=== PATIENT | male | born 1960 | race Hispanic/Latino ===

== ENCOUNTER 2017-05-30 13:24 | Emergency (ER) | payer BC, SELFPAY ==
[2017-05-30 14:08] LABS: Mean Corpuscular HGB CONC 34.8 g/dL (32.0-36.0); Mean Corpuscular Hemoglobin 33.1 pg (27.0-31.0); Mean Corpuscular Volume 94.9 fl (80.0-94.0); RBC Distribution Width 12.3 % (11.5-14.5); Red Blood Cell (RBC) Count 3.94 mill/uL (4.70-6.10); White Blood Cell (WBC) Count 4.5 thou/uL (4.8-10.8)
[2017-05-30 14:20] LABS: ALT (SGPT) 29 U/L (8-55); AST (SGOT) 55 U/L (5-34); Alkaline Phosphatase 122 U/L (40-150); Anion Gap 10 mmol/L (10-20); BUN (Urea Nitrogen) 11 mg/dL (8.4-25.7); CK (CPK) 139 U/L (30-200); Calc. Creatinine Clearance 0 mL/min (70-130); Calcium 8.2 mg/dL (7.8-10.44); Carbon Dioxide 25 mmol/L (22-29); Chloride 111 mmol/L (98-107); Estimated GFR-MDRD Greater than 90; Globulin 2.8 g/dL (2.4-3.5); Glucose 226 mg/dL (70-105); Protein, Total 4.8 g/dL (6.0-8.3); Sodium 142 mmol/L (136-145)
[2017-05-30 14:25] LABS: CKMB 1.4 ng/mL (0-6.6); Troponin I 0.012 ng/mL (< 0.028)
[2017-05-30 14:38] LABS: #Eosinphils 0.3 thou/uL (0.0-0.7); #Lymphocytes 1.3 thou/uL (1.20-3.40); #Monocytes 0.3 thou/uL (0.11-0.59); #Neutrophils 2.7 thou/uL (1.40-6.50); %Basophils 0.4 % (0.0-1.0); %Eosinophils 5.5 % (0.0-10.0); %Lymphocytes 27.7 % (21.0-51.0); %Neutrophils 59.3 % (42.0-75.0); Mean Platelet Volume 7.2 fL (7.4-10.4); PLT Morphology Comment Appears Decreased; Platelet Count 108 thou/uL (130-400)
[2017-05-30] MEDS ORDERED: Furosemide 40 MG/4 ML VIAL ONE (14:58)
--- NOTE | 2017-05-30 15:10 | RAD ---
PA AND LATERAL CHEST: Indication: Emergency examation. History of chest wall swelling. FINDINGS: There is a small left pleural effusion. Heart size and pulmonary vasculature is within normal limits. No acute osseous abnormality is noted. Exam is compared to a prior dated 02-25-10. IMPRESSION: Nonspecific small left pleural effusion. POS: [facility]
[2017-05-30 15:23] LABS: Bilirubin Small (Negative); Blood, Urine Large (Negative); Clarity CLEAR (Clear); Glucose, Urine (Dipstick) 250 mg/dL (Negative); Leukocyte Negative (Negative); Nitrite Negative (Negative); Protein, Urine (Dipstick) 300 mg/dL (Neg-Trace); Specific Gravity, Urine 1.025 (1.002-1.036)
[2017-05-30 15:26] LABS: Bacteria/HPF None Seen HPF (None Seen); Pathc Cast-AUWi Flag 2.03 (0-2.49); RBC/HPF 21-50 HPF (0-3); Squamous Epithelial 0-3 HPF (0-3)
[2017-05-30 15:30] LABS: Hyaline Casts/LPF 0-3 HYALINE CAST LPF (0-3 Hyaline)
--- NOTE | 2017-06-05 19:02 | EKG ---
Test Reason : SWELLING Blood Pressure : / mmHG Vent. Rate : 085 BPM Atrial Rate : 085 BPM P-R Int : 152 ms QRS Dur : 096 ms QT Int : 370 ms P-R-T Axes : 055 -07 025 degrees QTc Int : 440 ms Normal sinus rhythm Normal ECG Confirmed by SIDRA RHODES, BORIS ([id number]), content editor BERNIE PEGUERO ([id number]) on 06/05/2017 7:02:16 PM Referred By: DR. ARSHAD Confirmed By:BORIS VALENTE MD
== END 2017-05-30 16:05 | disposition home or self-care (01) ==
LOC: ERS 13:24
DX: E11.22 Type 2 diabetes mellitus with diabetic chronic kidney disease (principal); N18.9 Chronic kidney disease, unspecified; Z79.84 Long term (current) use of oral hypoglycemic drugs; Z79.899 Other long term (current) drug therapy
CPT/HCPCS: 36415; 71046; 80053; 81003; 81015; 82553; 83880; 84484; 85025; 93005; 96374; J1940

== ENCOUNTER 2017-11-02 14:43 | Inpatient (IN) | payer SELFPAY ==
[2017-11-02 15:30] LABS: #Eosinphils 0.6 thou/uL (0.0-0.7); #Lymphocytes 1.5 thou/uL (1.20-3.40); #Monocytes 0.4 thou/uL (0.11-0.59); #Neutrophils 3.9 thou/uL (1.40-6.50); %Basophils 0.6 % (0.0-1.0); %Eosinophils 9.6 % (0.0-10.0); %Lymphocytes 23.5 % (21.0-51.0); %Monocytes 6.4 % (0.0-10.0); Hemoglobin 12.7 g/dL (14.0-18.0); Mean Corpuscular HGB CONC 34.7 g/dL (32.0-36.0); Mean Corpuscular Hemoglobin 32.7 pg (27.0-31.0); Mean Corpuscular Volume 94.2 fL (78.0-98.0); Mean Platelet Volume 7.3 fL (7.4-10.4); Platelet Count 107 thou/uL (130-400); RBC Distribution Width 12.7 % (11.5-14.5); Red Blood Cell (RBC) Count 3.89 mill/uL (4.70-6.10); White Blood Cell (WBC) Count 6.5 thou/uL (4.8-10.8)
[2017-11-02 15:48] LABS: ALT (SGPT) 49 U/L (8-55); AST (SGOT) 84 U/L (5-34); Alkaline Phosphatase 139 U/L (40-150); Anion Gap 12 mmol/L (10-20); BUN (Urea Nitrogen) 19 mg/dL (8.4-25.7); Bilirubin, Total 1.5 mg/dL (0.2-1.2); Calc. Creatinine Clearance 0 mL/min (70-130); Calcium 7.7 mg/dL (7.8-10.44); Carbon Dioxide 19 mmol/L (22-29); Chloride 112 mmol/L (98-107); Estimated GFR-MDRD Greater than 90; Glucose 204 mg/dL (70-105); Potassium 3.7 mmol/L (3.5-5.1); Sodium 139 mmol/L (136-145)
[2017-11-02 16:25] LABS: CKMB 3.5 ng/mL (0-6.6); Troponin I 0.019 ng/mL (< 0.028)
[2017-11-02 16:44] LABS: Bilirubin Small (Negative); Blood, Urine Large (Negative); Clarity CLEAR (Clear); Glucose, Urine (Dipstick) 100 mg/dL (Negative); Leukocyte Negative (Negative); Nitrite Negative (Negative); Protein, Urine (Dipstick) > or equal to 300 mg/dL (Neg-Trace); Specific Gravity, Urine 1.021 (1.002-1.036)
[2017-11-02 16:51] LABS: Bacteria/HPF None Seen HPF (None Seen); Hyaline Casts/LPF 7-10 HYALINE CAST LPF (0-3 Hyaline); Pathc Cast-AUWi Flag 1.16 (0-2.49); RBC/HPF 21-50 HPF (0-3); Squamous Epithelial 0-3 HPF (0-3); WBC/HPF 0-3 HPF (0-3)
[2017-11-02] MEDS ORDERED: traMADol HCl 50 MG TAB ONE (17:36)
[2017-11-02 17:40] LABS: INR-International Normal Ratio 1.2; PTT 29.2 SEC (22.9-36.1); Prothrombin Time 15.3 SEC (12.0-14.7)
--- NOTE | 2017-11-02 17:55 | CT ---
CT OF THE ABDOMEN AND PELVIS WITHOUT CONTRAST: 11/02/17 INDICATIONS: 57-year-old male who has diffuse lower abdominal pain with history of hepatitis C. COMPARISON: CT pelvis dated 09/02/11. FINDINGS: There is cirrhotic morphology of the liver. There is peripherally calcified hypodense mass involving segment V of the right hepatic lobe measuring 6.2 cm. There is layered gallstones within a nondistended gallbladder. Spleen is enlarged measuring 15.2 cm T here is prominent perisplenic and gastroesophageal varicosities. There is a 2.1 cm cyst within the po sterior mid aspect of the right kidney. There is tiny 1 to 2 mm nonobstructive calculus involving the inferior pole of both the right and left kidney. No hydronephrosis is evident. There is recanalizati on of umbilical vein. There is mild ascites. There is moderate anasarca. There is small bilateral ple ural effusions and bibasilar atelectasis. There are moderate calcifications noted involving the abdom inal and pelvic vasculature. Unopacified large and small bowel appear of normal caliber. The appendix is normal in the right lower quadrant. There are scattered degenerative and osteoarthritic change. IMPRESSION: 1. Findings of cirrhosis with portal hypertension. There is mild ascites and moderate anasarca. There is small bilateral pleural effusions. 2. Hypodense mass involving segment V of the right hepatic lobe with peripheral calcification. T his is incompletely characterized. Followup nonemergent MRI of the abdomen utilizing hepatic mass pro tocol is recommended. 3. Right renal cyst. 4. Bilateral nephrolithiasis. POS: [facility]
[2017-11-02] MEDS ORDERED: cefTRIAXone\\ROCEPHIN 1 GM VIAL ONE (18:38)
[2017-11-02] MEDS ORDERED: Dextrose 5% in Water 1,000 ML IV PRN (20:33)
[2017-11-02] MEDS ORDERED: Ondansetron ODT 4 MG TAB PO PRN (20:33)
[2017-11-02] MEDS ORDERED: Insulin Regular 300 UNITS/3 ML VIAL SC PRN (20:33)
[2017-11-02] MEDS ORDERED: Senokot 8.6 MG TAB PO PRN (20:33)
[2017-11-02] MEDS ORDERED: Calcium Carbonate 500 MG ChewTAB PO PRN (20:33)
[2017-11-02] MEDS ORDERED: Dextrose 50% Abboject 50 ML SYRINGE SLOW IVP PRN (20:33)
[2017-11-02] MEDS ORDERED: Ondansetron HCl/PF 4 MG/2 ML Vial IVP PRN (20:33)
[2017-11-02 20:39] VITALS: BMI 35.3
[2017-11-02] MEDS ORDERED: Labetalol HCl 100 MG/20 ML VIAL SLOW IVP PRN (20:52)
[2017-11-02] MEDS ORDERED: hydrALAZINE 20 MG/ML VIAL SLOW IVP PRN (20:52)
[2017-11-02] MEDS ORDERED: Propranolol HCl 20 MG TAB PO SCH (21:00)
--- NOTE | 2017-11-02 21:15 | HP ---
DATE OF ADMISSION: 11/02/2017 PRIMARY CARE PHYSICIAN: Dr. Medina. PRIMARY CAMP GUARD: Dr. aSnchez. CHIEF COMPLAINT: Abdominal distention and pain of two months' duration got worse today. HISTORY OF PRESENT ILLNESS: The patient is a 57-year-old male with chronic hepatitis C with cirrhosi s, presented to the emergency room with abdominal pain and distention. This pain has been progressiv clifford getting worse over the last 4 days. The pain is mainly localized in the lower part of the abdome n and is moderate to severe in intensity without any aggravating or relieving factor. He denies any fever or chills. He also had some shortness of breath mainly on lying down. He also complains of wo rsening bilateral lower extremity swelling. No nausea, vomiting, hematochezia, or melena reported. He is compliant with low salt diet. He is currently not taking Lasix or Aldactone. In the emergency room, initial vital signs showed temperature 98.9, respirations 20, pulse rate of 98 with blood pressure of 175/84 with O2 saturation of 99% on room air. He underwent a CT scan of the abdomen and pelvis noncontrast that showed cirrhosis with portal hypertension and ascites. He receiv ed 1 gram of ceftriaxone along with tramadol in the emergency room. PAST MEDICAL HISTORY: 1. Cirrhosis secondary to chronic hepatitis C with portal hypertension. 2. Diabetes mellitus type 2. PAST SURGICAL HISTORY: Reviewed with the patient and none. ALLERGIES: No known drug allergies. CURRENT HOME MEDICATIONS: Levemir on an as needed basis. SOCIAL HISTORY: Currently lives at home. No smoking, alcohol or drug use. He quit drinking 3 month s ago. He is FULL CODE and makes his own decisions. FAMILY HISTORY: Negative for heart disease or malignancy. REVIEW OF SYSTEMS: The following complete review of systems was negative, unless otherwise mentioned in the HPI or below: Constitutional: Weight loss or gain, ability to conduct usual activities. Skin: Rash, itching. Eyes: Double vision, pain. ENT/Mouth: Nose bleeding, neck stiffness, pain, tenderness. Cardiovascular: Palpitations, dyspnea on exertion, orthopnea. Respiratory: Shortness of breath, wheezing, cough, hemoptysis, fever or night sweats. Gastrointestinal: Poor appetite, abdominal pain, heartburn, nausea, vomiting, constipation, or diarr hea. Genitourinary: Urgency, frequency, dysuria, nocturia. Musculoskeletal: Pain, swelling. Neurologic/Psychiatric: Anxiety, depression. Allergy/Immunologic: Skin rash, bleeding tendency. PHYSICAL EXAMINATION: VITAL SIGNS: Temperature 98.9, respirations 20, pulse rate of 98, blood pressure of 175/84 with O2 s aturation of 99% on room air. GENERAL: A 57-year-old male in mild distress due to abdominal discomfort. HEENT: Atraumatic, normocephalic, Sclerae are anicteric. Moist mucous membrane, no oral lesion. NECK: Supple, no JVD appreciated. No carotid bruit. LUNGS: Showed diminished air entry at bilateral bases. No rhonchi, wheezing or rales noted. HEART: S1 and S2 present. Regular rate and rhythm. No rubs or gallops appreciated. ABDOMEN: Distended, soft, bowel sounds present. No guarding, rigidity. Shifting dullness was prese nt. EXTREMITIES: A 3+ edema in bilateral lower extremities. No calf tenderness. SKIN: Warm and dry. LYMPH NODES: No palpable lymph nodes in the neck. PERIPHERAL VASCULAR: Radial pulses palpable bilaterally. MUSCULOSKELETAL: No joint swelling or tenderness. LABORATORY DATA AND IMAGING DATA: CBC showed WBC 6.5 with a hemoglobin 12.7, hematocrit 36.6, and pl atelet 107. PT of 15.3, INR 1.2 and PTT 29.2. Chemistries showed sodium 139, potassium 3.7, chlorid e 112, bicarbonate 19, BUN 19, creatinine 0.73, total bilirubin 1.5, AST 84, ALT 49, alkaline phospha tase 139, BNP 315. Albumin 2.0 with serum protein 5.0, lipase was 30. Troponins were negative. Uri nalysis showed hyaline cast. CT scan of the abdomen and pelvis by my review as discussed above. IMPRESSION AND PLAN: 1. Abdominal pain with symptomatic ascites, rule out SBP. 2. Chronic hepatitis C with cirrhosis and portal hypertension. 3. Abnormal liver function tests secondary to cirrhosis. 4. Hypoalbuminemia, coagulopathy and thrombocytopenia secondary to cirrhosis. 5. Obesity with body mass index of 35.3. 6. Diabetes mellitus type 2. 7. Bilateral nephrolithiasis. 8. Right renal cyst. 9. Questionable hypodense mass involving the right hepatic lobe. 10. Noncompliance. PLAN: The patient will be monitored on the medical floor. We will start him on Lasix, Aldactone and propranolol. IV ceftriaxone for suspected SBP. Blood cultures have been sent. We will send fluid studies for cell count, differential, Gram stain and culture. We will repeat labs in a.m. We will k eep him n.p.o. past midnight. Consult Gastroenterology. We will start him on sliding scale. Plan of care was discussed with the patient in detail. He stated understanding.
[2017-11-02] MEDS: Docusate 100 MG CAP PO SCH (22:41)
[2017-11-03 05:48] LABS: #Eosinphils 0.9 thou/uL (0.0-0.7); #Lymphocytes 1.6 thou/uL (1.20-3.40); #Monocytes 0.4 thou/uL (0.11-0.59); #Neutrophils 2.3 thou/uL (1.40-6.50); %Basophils 0.9 % (0.0-1.0); %Lymphocytes 30.9 % (21.0-51.0); %Monocytes 7.8 % (0.0-10.0); %Neutrophils 43.4 % (42.0-75.0); Hemoglobin 11.1 g/dL (14.0-18.0); Mean Corpuscular HGB CONC 35.9 g/dL (32.0-36.0); Mean Corpuscular Hemoglobin 33.6 pg (27.0-31.0); Mean Corpuscular Volume 93.6 fL (78.0-98.0); Platelet Count 83 thou/uL (130-400); RBC Distribution Width 12.7 % (11.5-14.5); Red Blood Cell (RBC) Count 3.32 mill/uL (4.70-6.10); White Blood Cell (WBC) Count 5.2 thou/uL (4.8-10.8)
[2017-11-03 05:53] LABS: ALT (SGPT) 42 U/L (8-55); AST (SGOT) 71 U/L (5-34); Albumin 1.7 g/dL (3.5-5.0); Alkaline Phosphatase 116 U/L (40-150); Anion Gap 9 mmol/L (10-20); BUN (Urea Nitrogen) 21 mg/dL (8.4-25.7); Calc. Creatinine Clearance 176 mL/min (70-130); Calcium 7.6 mg/dL (7.8-10.44); Carbon Dioxide 25 mmol/L (22-29); Chloride 111 mmol/L (98-107); Estimated GFR-MDRD Greater than 90; Globulin 2.6 g/dL (2.4-3.5); Glucose 165 mg/dL (70-105); Magnesium 1.2 mg/dL (1.6-2.6); Potassium 3.5 mmol/L (3.5-5.1); Protein, Total 4.3 g/dL (6.0-8.3); Sodium 141 mmol/L (136-145)
[2017-11-03] MEDS ORDERED: Magnesium Sulfate 4 GM in Sodium Chloride 0.9% 250 ML 250 ML IVPB SCH (06:15)
[2017-11-03] MEDS ORDERED: Sodium Bicarbonate 2.5 MEQ/5 ML VIAL ONE (08:22)
[2017-11-03] MEDS ORDERED: Lidocaine 1% PF 5 ML VIAL ONE (08:22)
[2017-11-03] MEDS ORDERED: Furosemide 40 MG TAB PO SCH (09:00)
[2017-11-03] MEDS: Spironolactone 25 MG TAB PO SCH ×2 (10:06→17:34)
[2017-11-03] MEDS: Docusate 100 MG CAP PO SCH ×2 (10:07→21:23)
--- NOTE | 2017-11-03 10:07 | ULT ---
PROCEDURE: Ultrasound guided abdominal paracentesis. INDICATION: Symptomatic ascites. Diagnostic paracentesis requested. FINDINGS: Four quadrant abdominal ultrasound shows small volume ascites. A small pocket of fluid in the right l ower quadrant is chosen for sampling. A 5 Dutch Yueh catheter with needle in place was introduced in to this pocket under ultrasound guidance. Needle was removed and the catheter was attached to suction drainage. Approximately 50 mL of cloudy ascitic fluid is removed. Bowel loops then obstructed the ca theter and no further fluid could be obtained. The catheter is then removed and a sterile dressing ap plied. PROCEDURE NOTE: Permit was signed. Four quadrant ultrasound was performed. Right lower quadrant was chosen for punctu re. The overlying skin was prepped and draped in a sterile manner. Local anesthesia was administered to the puncture site with lidocaine and bicarb. A 5 Dutch Yueh catheter and needle was introduced un tamar ultrasound guidance. 50 mL of fluid removed. Patient tolerated the procedure well and there were no problems or complications. POS: [facility]
--- NOTE | 2017-11-03 10:36 | PDOC.PN ---
- Subjective Encounter Start Date: 11/03/17 Encounter Start Time: 10:33 Subjective: vague abd discomfort, no fever, chills - Objective Resuscitation Status: Resuscitation Status FULL:Full Resuscitation MAR Reviewed: Yes Vital Signs & Weight: Vital Signs (12 hours) Temp Pulse Resp BP Pulse Ox 11/03/17 07:14 97.4 F L 71 18 159/83 H 98 11/03/17 04:00 97.6 F 71 18 147/84 H 98 11/03/17 00:00 97.7 F 65 18 109/65 97 Weight Weight 239 lb 3.2 oz I&O: 11/02/17 11/03/17 11/04/17 06:59 06:59 06:59 Intake Total 600 Output Total 150 Balance 450 Result Diagrams: 11/03/17 04:26 11/03/17 04:26 Additional Labs: Accuchecks 11/03/17 11/02/17 05:52 20:55 POC Glucose 136 H 114 H Phys Exam - Physical Examination Neck: no JVD Respiratory: clear to auscultation bilateral Cardiovascular: RRR, no significant murmur Gastrointestinal: soft, positive bowel sounds ascites, tender RLQ Musculoskeletal: edema present Dx/Plan (1) SBP (spontaneous bacterial peritonitis) Code(s): K65.2 - SPONTANEOUS BACTERIAL PERITONITIS Status: Acute (2) Hepatitis C infection Code(s): B19.20 - UNSPECIFIED VIRAL HEPATITIS C WITHOUT HEPATIC COMA Status: Chronic Qualifiers: Viral hepatitis chronicity: chronic Hepatic coma status: without hepatic coma Qualified Code(s): B18.2 - Chronic viral hepatitis C (3) Cirrhosis of liver Code(s): K74.60 - UNSPECIFIED CIRRHOSIS OF LIVER Status: Chronic Qualifiers: Ascites presence: unspecified (4) Ascites Code(s): R18.8 - OTHER ASCITES Status: Acute Qualifiers: Ascites type: other type Qualified Code(s): R18.8 - Other ascites (5) DM type 2 (diabetes mellitus, type 2) Status: Chronic Qualifiers: Diabetes mellitus terminal worker insulin use: without group home use Diabetes mellitus complication status: without complication Qualified Code(s): E11.9 - Type 2 diabetes mellitus without complications - Plan postt paracentesis, cont antibx pending C&S results -: lasix, spironolactone, corgard -: GI consult pending * .
[2017-11-03 12:47] LABS: BF Color Yellow; BF RBC Count - Manual 210 /cumm; BF WBC/Nonhematics Ct. - Manua 380 /cumm; Body Fluid Source Ascites Body Fluid; Clarity Hazy (Clear); Tube # EDTA
[2017-11-03 12:49] LABS: Eosinophils 1 %
[2017-11-03 12:50] LABS: BF Segmented Neutrophils 11 %; Cell Count Non Hematic 45 %; Lymphocytes 44 %
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
[2017-11-03] MEDS: Insulin Regular 300 UNITS/3 ML VIAL SC PRN (17:34)
[2017-11-03] MEDS: cefTRIAXone\\ROCEPHIN 1 GM in Sodium Chloride 0.9% 100 ML IVPB SCH (17:34)
[2017-11-03] MEDS: traMADol HCl 50 MG TAB PO PRN (17:38)
[2017-11-04 04:53] LABS: Iron 68 ug/dL (65-175); Iron Binding Capacity, Total 164 mcg/dL (261-462)
[2017-11-04] MEDS: Furosemide 40 MG TAB PO SCH (06:39)
[2017-11-04] MEDS: Insulin Regular 300 UNITS/3 ML VIAL SC PRN ×3 (06:40→18:18)
[2017-11-04] MEDS ORDERED: Spironolactone 25 MG TAB PO SCH (08:00)
--- NOTE | 2017-11-04 08:20 | PDOC.PN ---
- Subjective Encounter Start Date: 11/04/17 Encounter Start Time: :18 Subjective: no fever, chills - Objective Resuscitation Status: Resuscitation Status FULL:Full Resuscitation MAR Reviewed: Yes Vital Signs & Weight: Vital Signs (12 hours) Temp Pulse Resp BP Pulse Ox 11/04/17 04:47 97.3 F L 68 17 119/66 99 11/04/17 00:00 97.5 F L 52 L 16 91/48 L 97 11/03/17 21:28 97.7 F 61 16 118/67 95 Weight Weight 239 lb 3.2 oz I&O: 11/03/17 11/04/17 11/05/17 06:59 06:59 06:59 Intake Total 600 2290 Output Total 150 Balance 450 2290 Result Diagrams: 11/03/17 04:26 11/03/17 04:26 Additional Labs: Accuchecks 11/04/17 11/03/17 11/03/17 05:46 21:00 15:29 POC Glucose 180 H 246 H 178 H 11/03/17 10:38 POC Glucose 146 H Phys Exam - Physical Examination Neck: no JVD Respiratory: clear to auscultation bilateral Cardiovascular: RRR, no significant murmur Gastrointestinal: soft, positive bowel sounds 3+ edema Dx/Plan (1) SBP (spontaneous bacterial peritonitis) Code(s): K65.2 - SPONTANEOUS BACTERIAL PERITONITIS Status: Acute (2) Hepatitis C infection Code(s): B19.20 - UNSPECIFIED VIRAL HEPATITIS C WITHOUT HEPATIC COMA Status: Chronic Qualifiers: Viral hepatitis chronicity: chronic Hepatic coma status: without hepatic coma Qualified Code(s): B18.2 - Chronic viral hepatitis C (3) Cirrhosis of liver Code(s): K74.60 - UNSPECIFIED CIRRHOSIS OF LIVER Status: Chronic Qualifiers: Ascites presence: unspecified (4) Ascites Code(s): R18.8 - OTHER ASCITES Status: Acute Qualifiers: Ascites type: other type Qualified Code(s): R18.8 - Other ascites (5) DM type 2 (diabetes mellitus, type 2) Status: Chronic Qualifiers: Diabetes mellitus snf insulin use: without snf use Diabetes mellitus complication status: without complication Qualified Code(s): E11.9 - Type 2 diabetes mellitus without complications - Plan cont diuresis with lasix, aldactone, cont b-donna -: cont iv antibx pending ascitic fluid C&S -: cont FONTANA hep C , AFP markers -: discuss with Case * .
[2017-11-04] MEDS: Docusate 100 MG CAP PO SCH ×2 (08:51→20:20)
[2017-11-04] MEDS: Nadolol 40 MG TAB PO SCH (08:51)
[2017-11-04] MEDS: Spironolactone 25 MG TAB PO SCH ×2 (08:52→18:17)
[2017-11-04 13:41] LABS: CEA, Serum 8.63 ng/mL (< or = 5.0); Ferritin 389.67 ng/mL (22-322)
--- NOTE | 2017-11-04 14:06 | PRG ---
DATE OF SERVICE: 11/04/2017 SUBJECTIVE: Mr. Samayoa is feeling pretty well today. He had no specific complaints. PHYSICAL EXAMINATION: VITAL SIGNS: Temperature 98.2, pulse 62, blood pressure 141/73, 98% oxygen saturation on room air. GENERAL: No acute distress. HEART: Regular rate and rhythm. LUNGS: Clear to auscultation bilaterally. ABDOMEN: Mild distention with ascites, nontender to palpation. EXTREMITIES: 1-2+ bilateral lower extremity edema. LABORATORY STUDIES: Glucose 180. Ascites fluid studies came back, there were 380 WBCs with only 11% neutrophils. Ascites fluid culture shows no growth at 24 hours and blood cultures show no growth at 48 hours. ASSESSMENT AND PLAN: 1. Cirrhosis. 2. Chronic hepatitis C. 3. Ascites. Fluid studies show no evidence of SBP. I again emphasized with him the importance of a low sodium diet going forward. Spironolactone has been added to the furosemide. I would have him o n furosemide 40 mg daily, and spironolactone 100 mg daily. No need for repeat paracentesis at this t tahmina. 4. Liver lesion, right lobe. This remains the most concerning feature for his presentation, given t hat the liver lesion appears to have increased in size from a prior CT. We are awaiting tumor marker s which were drawn this morning. I would like to go ahead and get the MRI of the abdomen, liver mass protocol to try to further characterize this. Please call with any questions or concerns.
[2017-11-04] MEDS: cefTRIAXone\\ROCEPHIN 1 GM in Sodium Chloride 0.9% 100 ML IVPB SCH (18:19)
[2017-11-04] MEDS: traMADol HCl 50 MG TAB PO PRN (20:21)
[2017-11-05] MEDS: Insulin Regular 300 UNITS/3 ML VIAL SC PRN (06:24)
[2017-11-05] MEDS: Furosemide 40 MG TAB PO SCH (06:24)
[2017-11-05] MEDS: Spironolactone 25 MG TAB PO SCH ×2 (08:21→15:46)
[2017-11-05] MEDS: Docusate 100 MG CAP PO SCH (08:21)
[2017-11-05] MEDS: Nadolol 40 MG TAB PO SCH (08:21)
--- NOTE | 2017-11-05 15:18 | MRI ---
MRI ABDOMEN WITH AND WITHOUT IV CONTRAST: Date: 11/05/17 HISTORY: Liver lesion on CT scan of 11/02/17. Hepatitis C. FINDINGS: Correlation is made with the CT scan of 11/02/17. The 3.0 cm mass involving segment 5 of the right hepatic lobe noted on the CT scan demonstrates high T1 and T2 signal and no postcontrast enhancement on the subtracted images. This is most likely due to proteinaceous or hemorrhagic cyst. No enhancing liver masses are identified. Cirrhosis of the liver, splenomegaly, varices, and right renal cyst are noted. Pancreas, adrenal glan ds, and left kidney are unremarkable. Gallbladder is unremarkable. There is free fluid in the abdomen consistent with ascites. The bone marrow signal is unremarkable. There are bilateral pleural effusio ns. IMPRESSION: 1. The right hepatic lobe mass is most likely a proteinaceous or hemorrhagic cyst. No enhancing live r mass is to suggest HCC. 2. Cirrhosis of the liver, splenomegaly, ascites, and portal hypertension. A follow-up exam is recommended in 6 months. POS: [facility]
[2017-11-05] MEDS: traMADol HCl 50 MG TAB PO PRN (15:44)
[2017-11-05 15:48] VITALS: BP 166/78; TEMP 98.2
--- NOTE | 2017-11-05 15:55 | PRG ---
DATE OF SERVICE: 11/05/2017 SUBJECTIVE: Mr. Samayoa is feeling well. He feels like his lower extremity edema has gone down a li ttle bit and his abdomen does not feel very distended. His MRI report just came back reassuring. OBJECTIVE: VITAL SIGNS: Temperature 97.6, pulse 58, blood pressure 170/80, 98% oxygen saturation on room air. GENERAL: No acute distress. HEART: Regular rate and rhythm. LUNGS: Clear to auscultation bilaterally. ABDOMEN: Soft, bowel sounds present. Mild distention, nontender to palpation. EXTREMITIES: 1-2+ bilateral lower extremity edema. LABORATORY STUDIES: Glucose 203, hepatitis C viral load and genotype are pending. Hemochromatosis g enetic testing is also pending. His CA-19-9 level was normal at 26. CA-125 level is elevated at 504 .1. CEA level is mildly elevated at 8.63. AFP remains normal at 4.0. IMAGING STUDIES: MRI of the abdomen was performed earlier today. This demonstrates that his 3 cm ma ss in the right hepatic lobe demonstrates features most consistent with proteinaceous or hemorrhagic cyst. There is no enhancing liver mass identified. He has cirrhosis and splenomegaly with varices, which have all been previously visualized. A followup exam was recommended at 6-month interval. ASSESSMENT AND PLAN: 1. Right lobe liver lesion, appears to represent benign proteinaceous or hemorrhagic cyst on MRI fro m today. I discussed the MRI findings with the patient. This appears reassuring. I would recommend that we repeat MRI liver mass protocol at a 6-month interval as recommended by the radiologist. Not e that AFP and CA 19-9 are normal. There is a mild elevation of CEA as well as elevation of CA-125, but please note that this can be elevated just with cirrhosis itself. 2. Cirrhosis, it appears secondary to chronic hepatitis C. 3. Chronic hepatitis C. The patient states that he is now on Medicaid and thus getting him antiviral treatment for his hepatitis C will likely be easier. Still awaiting genotype and viral load. Carrie w up as an outpatient to consider hepatitis C treatment. 4. Ascites. The patient has had a paracentesis negative for SBP. I again reinforced the importance of a low sodium diet of less than 2000 mg per day. Discharge on diuretics with Lasix 40 mg daily, s pironolactone 100 mg daily. He will also be on nadolol 40 mg daily. From a GI perspective, he is okay for hospital discharge today. We will have him followup in the GI/ liver Clinic with me or one of my Physician Regulatory Scientist in the next couple of weeks.
[2017-11-06 13:11] LABS: Hep C PCR-Quant 209000 IU/mL (.)
== END 2017-11-05 17:48 | disposition home or self-care (01) | DRG 433 ==
LOC: ERS 14:43 → SJJU 18:00
PROVIDERS: ADMIT Internal Medicine; ATTEND Internal Medicine
PROC: 0W9G3ZZ Drainage of Peritoneal Cavity, Percutaneous Approach (ICD-10-PCS; principal; 2017-11-03)
DX: K74.60 Unspecified cirrhosis of liver (principal); K76.6 Portal hypertension; R18.8 Other ascites; B18.2 Chronic viral hepatitis C; E11.9 Type 2 diabetes mellitus without complications; D69.59 Other secondary thrombocytopenia; E66.9 Obesity, unspecified; Z68.35 Body mass index [BMI] 35.0-35.9, adult; Z91.19 Patient's noncompliance with other medical treatment and regimen; N20.0 Calculus of kidney; D13.4 Benign neoplasm of liver
CPT/HCPCS: 36415; 36416; 49083; 74176; 74183; 80053; 81003; 81015; 81256; 82105; 82378; 82553; 82728; 83540; 83550; 83690; 83735; 83880; 84484; 85025; 85060; 85610; 85730; 86301; 86304; 87040; 87070; 87205; 87522; 87902; 89051; 90471; 90732; 96365; G0009; J0696; J1815; J2001; J3475; J7050

== ENCOUNTER 2017-11-19 12:11 | Outpatient (CLI) | payer MEDICAID | END 2017-11-19 12:12 | disposition home or self-care (01) | LOC: BICRAD 12:11 | PROVIDERS: ATTEND Internal Medicine | DX: R76.11 Nonspecific reaction to tuberculin skin test without active tuberculosis (principal); J98.11 Atelectasis; J90 Pleural effusion, not elsewhere classified | CPT/HCPCS: 71046 ==

== ENCOUNTER 2017-12-03 13:26 | Inpatient (IN) | payer MEDICAID ==
[2017-12-03] MEDS ORDERED: Aspirin 325 MG TAB ONE (13:47)
[2017-12-03 13:57] LABS: INR-International Normal Ratio 1.2; PTT 30.3 SEC (22.9-36.1); Prothrombin Time 15.7 SEC (12.0-14.7)
[2017-12-03] MEDS ORDERED: Nitroglycerin 0.4 MG TAB (25 Tab Bottle) ONE (13:57)
[2017-12-03 14:06] LABS: #Basophils 0.1 thou/uL (0.0-0.2); #Eosinphils 0.6 thou/uL (0.0-0.7); #Monocytes 0.4 thou/uL (0.11-0.59); #Neutrophils 2.5 thou/uL (1.40-6.50); %Basophils 1.1 % (0.0-1.0); %Eosinophils 10.7 % (0.0-10.0); %Lymphocytes 36.3 % (21.0-51.0); %Monocytes 6.7 % (0.0-10.0); %Neutrophils 45.1 % (42.0-75.0); Hemoglobin 12.3 g/dL (14.0-18.0); Mean Corpuscular HGB CONC 36.2 g/dL (32.0-36.0); Mean Corpuscular Hemoglobin 32.6 pg (27.0-31.0); Mean Corpuscular Volume 90.3 fL (78.0-98.0); Mean Platelet Volume 7.3 fL (7.4-10.4); Platelet Count 109 thou/uL (130-400); RBC Distribution Width 12.6 % (11.5-14.5); Red Blood Cell (RBC) Count 3.77 mill/uL (4.70-6.10); White Blood Cell (WBC) Count 5.6 thou/uL (4.8-10.8)
[2017-12-03 14:09] LABS: ALT (SGPT) 33 U/L (8-55); AST (SGOT) 57 U/L (5-34); Albumin 1.6 g/dL (3.5-5.0); Alkaline Phosphatase 128 U/L (40-150); Anion Gap 9 mmol/L (10-20); BUN (Urea Nitrogen) 19 mg/dL (8.4-25.7); Bilirubin, Total 1.4 mg/dL (0.2-1.2); CK (CPK) 276 U/L (30-200); Calc. Creatinine Clearance 0 mL/min (70-130); Calcium 7.7 mg/dL (7.8-10.44); Carbon Dioxide 20 mmol/L (22-29); Chloride 112 mmol/L (98-107); Estimated GFR-MDRD Greater than 90; Globulin 3.3 g/dL (2.4-3.5); Glucose 262 mg/dL (70-105); Potassium 4.2 mmol/L (3.5-5.1); Protein, Total 4.9 g/dL (6.0-8.3); Sodium 137 mmol/L (136-145)
[2017-12-03 14:13] LABS: CKMB 2.7 ng/mL (0-6.6); Troponin I Less than 0.010 ng/mL (< 0.028)
[2017-12-03] MEDS ORDERED: Furosemide 40 MG/4 ML VIAL ONE (14:30)
[2017-12-03] MEDS ORDERED: Nitroglycerin 2% Ointment 1 INCH/1 GM Packet ONE (14:30)
[2017-12-03] MEDS ORDERED: Acetaminophen 500 MG TAB ONE (14:30)
--- NOTE | 2017-12-03 14:31 | RAD ---
CHEST 1 VIEW: HISTORY: Chest pain. COMPARISON: Chest radiograph 10/30/17. FINDINGS: There is mild improvement in linear opacities left lung base. Mild hypoinflation with vascular crowd ing. No pneumothorax or effusion. IMPRESSION: No acute intrathoracic abnormality. POS: [facility]
[2017-12-03] MEDS ORDERED: Dextrose 50% Abboject 50 ML SYRINGE SLOW IVP PRN (15:34)
[2017-12-03] MEDS ORDERED: HumaLOG 300 UNITS/3 ML VIAL SC PRN (15:34)
[2017-12-03] MEDS ORDERED: Dextrose 5% in Water 1,000 ML IV PRN (15:34)
[2017-12-03] MEDS ORDERED: Guaifenesin DM 100-10/5 ML UDCUP PO PRN (15:34)
[2017-12-03 17:11] LABS: Troponin I Less than 0.010 ng/mL (< 0.028)
[2017-12-03 17:56] VITALS: BMI 33.4
[2017-12-03] MEDS: Spironolactone 25 MG TAB PO SCH (18:06)
--- NOTE | 2017-12-03 18:48 | HP ---
REASON FOR ADMISSION: CHF exacerbation, chest pain. HISTORY OF PRESENT ILLNESS: The patient gives history of having chest heaviness which started yester day evening and lasted the whole night. He could not sleep. He normally goes to spend the night in group home from Wednesday to as part of his probation and 30 nights in group home for a crime, he has not revealed to me. The patient states that he started doing from this past Wednesday. His primary care p hu is Dr. Medina has been trying to get him an appointment to see a risk management intern, but has been unable to do so. The patient has known history of cirrhosis and is yet to start his hepatitis C carlos a atment and is seeing Dr. Asif Sanchez for the same. He states he is compliant with taking Lasix and in sulins at home. He has been itching his eyes, but has not had any recent surgeries. No complaints o f palpitations or orthopnea. He states his lower extremity swelling is drastically come down from la st 2 months or so now. PAST MEDICAL AND SURGICAL HISTORY: History of cirrhosis, hep C, prior history of alcohol abuse which she has quit from last 5 months now. Diabetes mellitus type 2, GERD, recent EGD and colonoscopy don e. No other surgical history. CURRENT MEDICATIONS: The patient does not recall his exact medications, but says it has been unchang ed from his recent discharge last month. He is on Lasix 40 mg daily, Levemir 30 units subcu twice da sheri, tizanidine 4 mg p.o. at bedtime p.r.n. for insomnia/muscular pains, nadolol 40 mg daily, Protoni x 40 mg daily, spironolactone 50 mg p.o. twice daily. ALLERGIES: No known drug allergies. PERSONAL HISTORY: Quit drinking alcohol 5 months back prior to which had been drinking 5-6 beers marie ry other day for nearly 15 years. Does not smoke or abuse other drugs. Lives with his . FAMILY HISTORY: Mother of massive MA at the age of 60 years. Father is currently living and is around 90 years old now. CODE STATUS: FULL. REVIEW OF SYSTEMS: The following complete review of systems was negative, unless otherwise mentioned in the HPI or below: Constitutional: Weight loss or gain, ability to conduct usual activities. Skin: Rash, itching. Eyes: Double vision, pain. ENT/Mouth: Nose bleeding, neck stiffness, pain, tenderness. Cardiovascular: Palpitations, dyspnea on exertion, orthopnea. Respiratory: Shortness of breath, wheezing, cough, hemoptysis, fever or night sweats. Gastrointestinal: Poor appetite, abdominal pain, heartburn, nausea, vomiting, constipation, or diarrhea. Genitourinary: Urgency, frequency, dysuria, nocturia. Musculoskeletal: Pain, swelling. Neurologic/Psychiatric: Anxiety, depression. Allergy/Immunologic: Skin rash, bleeding tendency. PHYSICAL EXAMINATION: GENERAL: The patient is a 57-year-old male who is currently not in any acute distress and is chest p ain free. VITAL SIGNS: Blood pressure 180/86, pulse 74 per minute, respiratory rate 16 per minute, temperature 98.7 degrees Fahrenheit, saturating 99% on room air. NECK: Supple, no elevated JVD. HEENT: Eyes: Extraocular muscles intact. Pupils reacting to light. There is subconjunctival hemor rhage, more so on the right eye than the left eye. NECK: Supple. CARDIOVASCULAR: S1, S2 heard. Regular rhythm. RESPIRATORY: Air entry 1+ bilateral. Scattered rales in the infrascapular area. ABDOMEN: Soft, bowel sounds heard. His abdominal wall edema in the lower quadrants. Bowel sounds a re heard. No rigidity or guarding. EXTREMITIES: There is 2+ peripheral edema, no calf tenderness. VASCULAR SYSTEM: Peripheral pulses 1+ bilateral, no ischemic ulcerations or gangrene. CENTRAL NERVOUS SYSTEM: No gross focal deficits noted. The patient is alert, awake, and oriented we ll. PSYCHIATRIC: The patient's mood is euthymic. No hallucinations or delusions. LABORATORY AND X-RAY FINDINGS: EKG done shows normal sinus rhythm at 71 beats per minute. The volta ge is low and there is poor R-wave progression. Serum bicarbonate 20, BUN 19, creatinine 0.7, glucos e 262, total bilirubin 1.4, AST 57, ALT 33, alkaline phosphatase 128. CK level is 276. BNP is 1076. Albumin is 1.6. Chest x-ray done shows no acute infiltrate. INR 1.2. PT is 15.7. White count of 5.6, H&H 12 and 34, platelet count 109 with 45% neutrophils, MCV is 90. CLINICAL IMPRESSION AND PLAN: The patient will be admitted to telemetry for chest pressure/pain and likely cardiomyopathy/congestive heart failure exacerbation. Clinically, appears to be dry with subc onjunctival hemorrhage as well. We will place him on Lasix IV twice daily along with spironolactone. We will continue his nadolol as before in view of his cirrhosis to reduce portal pressure and ascit es and a small dose of Cozaar will be added. He also be on aspirin 81 mg daily. We will continue hi s Protonix as before. Tetrahydrozoline eye drops to see if it helps with his dryness in the subconju nctival hemorrhage. I have advised him not to rub his eyes. Echo with 2D Doppler will be obtained f or left ventricular function. Uric acid and TSH levels in the morning. Strict I and O chart will be maintained. Likely, the patient can be switched over to Lasix in the morning. He appears to be dry clinically as I mentioned earlier. We will consult Dr. Kevin who was fabrication inspector for Cardiology as well.
[2017-12-03] MEDS ORDERED: Non-Formulary Item 1 EACH (Insulin Detemir 100 Units/Ml [Levemir] 30 UNIT) SQ SCH (21:00)
[2017-12-03] MEDS: Acetaminophen 325 MG TAB PO PRN (21:12)
[2017-12-03] MEDS: Tetrahydrozoline 0.05% OPTH 15 ML BOT EA EYE SCH (21:25)
[2017-12-03] MEDS: Insulin Glargine 30 UNITS in Pre-Filled Syringe 1 EACH SC SCH (21:26)
[2017-12-03 21:50] LABS: Troponin I Less than 0.010 ng/mL (< 0.028)
[2017-12-03] MEDS: tiZANidine HCl 4 MG TAB PO PRN (22:42)
[2017-12-04 04:51] LABS: #Eosinphils 0.4 thou/uL (0.0-0.7); #Lymphocytes 1.7 thou/uL (1.20-3.40); #Monocytes 0.4 thou/uL (0.11-0.59); #Neutrophils 1.7 thou/uL (1.40-6.50); %Basophils 0.5 % (0.0-1.0); %Eosinophils 10.2 % (0.0-10.0); %Lymphocytes 40.5 % (21.0-51.0); %Monocytes 9.2 % (0.0-10.0); %Neutrophils 39.6 % (42.0-75.0); Mean Corpuscular HGB CONC 36.2 g/dL (32.0-36.0); Mean Corpuscular Hemoglobin 32.8 pg (27.0-31.0); Mean Corpuscular Volume 90.6 fL (78.0-98.0); Mean Platelet Volume 7.6 fL (7.4-10.4); Platelet Count 90 thou/uL (130-400); RBC Distribution Width 12.6 % (11.5-14.5); Red Blood Cell (RBC) Count 3.05 mill/uL (4.70-6.10); White Blood Cell (WBC) Count 4.2 thou/uL (4.8-10.8)
[2017-12-04 04:59] LABS: Anion Gap 7 mmol/L (10-20); BUN (Urea Nitrogen) 23 mg/dL (8.4-25.7); Calc. Creatinine Clearance 122 mL/min (70-130); Calcium 7.5 mg/dL (7.8-10.44); Carbon Dioxide 23 mmol/L (22-29); Chloride 112 mmol/L (98-107); Estimated GFR-MDRD 79; Glucose 249 mg/dL (70-105); Sodium 138 mmol/L (136-145)
[2017-12-04] MEDS ORDERED: Sodium Chloride 0.9% 500 ML IVPB SCH (05:45)
[2017-12-04] MEDS ORDERED: Furosemide 40 MG/4 ML VIAL SLOW IVP SCH (06:00)
[2017-12-04] MEDS: Spironolactone 25 MG TAB PO SCH ×2 (08:47→17:03)
[2017-12-04] MEDS: Enoxaparin Sodium 40 MG/0.4 ML SYRINGE SC SCH (08:48)
[2017-12-04] MEDS: Tetrahydrozoline 0.05% OPTH 15 ML BOT EA EYE SCH ×2 (08:48→20:47)
[2017-12-04] MEDS: Insulin Glargine 30 UNITS in Pre-Filled Syringe 1 EACH SC SCH ×2 (08:48→20:49)
[2017-12-04] MEDS ORDERED: Losartan 25 MG TAB PO SCH (09:00)
[2017-12-04] MEDS: Nadolol 40 MG TAB PO SCH (10:19)
--- NOTE | 2017-12-04 13:12 | CON ---
DATE OF CONSULTATION: 12/04/2017 PRIMARY HEARING AID REPAIRER: Dr. Whit Kevin. REFERRING DOCTOR: Dr. Fuchs. REASON FOR CARDIOLOGY CONSULTATION: New onset of congestive heart failure, chest pain, history of ci rrhosis, hep C. HISTORY OF PRESENT ILLNESS: Mr. Samayoa is a 57-year-old male with a significant history of ETOH abuse, chronic hepatitis C with cirrhosis, diabetes, and hypertension. The patient presents to the emergency department due to the heaviness to the mediastinal area for 1 day with headache and wo rsening of shortness of breath. After the patient received the Lasix and IV in the emergency departm ent, the patient's condition was improved per patient and patient's family. Prior to this event, the family has noticed that the patient's lower extremity become swelling for 5 months and lately he cou ld not lay flat to sleep. He has a significant history of alcoholic hepatitis C and he has been seen by Dr. Sanchez, who prescribed Lasix 40 mg once a day for cirrhosis and edema in the lower extremities. Right now, he is under the probation and he had to be in alf at night from 7:00 p.m. to 4:00 a.m., Wednesday through for his probation and he was started giving the clonidine at the facility be cause of the elevated blood pressure. His normal blood pressure at home have been 150-160/90-100per . During the Cardiology consult assessment, patient denies chest pain or heaviness or discomfort in his chest, shortness of breath, he could lay flat without any distress at this moment. PAST MEDICAL HISTORY: 1. Chronic hepatitis C with cirrhosis, seen by Dr. Sanchez. 2. ETOH abuse. He quit about 5 months ago. 3. Diabetes type 2. 4. Gastroesophageal reflux disease. The patient underwent EGD and colonoscopy about [address] Sanchez. The patient will follow up with Dr. Sanchez for his result next week. 5. Hypertension. PAST SURGICAL HISTORY: He never had any surgical history before. FAMILY HISTORY: Patient's mother due to the massive myocardial infarction at the age of 71. She also has a medical history of hemodialysis, diabetes and hypertension. Besides that, there are no significant family history of coronary artery disease, hypertension or any cardiac related histor y. SOCIAL HISTORY: He is , has two children who live well. Right now, he is in disable and he n ever smoked. He quit drinking about 5 months ago. Also he had a long history of illicit drug abuse, which he quit 5 months ago. 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 ALLERGIES: No known drug allergies. CURRENT MEDICATIONS: Patient and cannot remember what he is taking. His is going to bring the patient's medication list from his home. REVIEW OF SYSTEMS: A 12-point review of systems was negative, unless otherwise mentioned in the HPI. PHYSICAL EXAMINATION: VITAL SIGNS: Blood pressure 117/59, heart rate 59 with sinus rhythm, temperature 97.7, respiratory r ate 16, O2 sat 96% with room air. GENERAL: The patient is alert, oriented x4 without any acute distress. HEAD: Normocephalic, atraumatic. EYES: Extraocular muscle movement is intact. ENT: Nasal and oral mucosa moist without lesion. NECK: Supple. No JVD, normal range of motion. RESPIRATORY: Clear to auscultation bilaterally, but very diminished at the bases. The patient denie s hemoptysis. CARDIOVASCULAR: Regular rate and rhythm. There are normal S1, S2. There are no S3, S4, no signific ant murmur, hives, thrill noted. Carotid pulses are present without bruit and thrill. EXTREMITIES: There are 2+ pulses in the bilateral lower extremities. Thera are 2-3+ pitting edema i n the bilateral lower extremities, 2 from knee down. The patient reports that the patient used to méndez ve edema to his thigh. ABDOMEN: Soft, nontender, no mass to palpate. Bowel sounds are present. MUSCULOSKELETAL: Patient able to move all extremities without any distress or discomfort. SKIN: Warm and dry. There are no lesions or bruise noted. noted. There have some discolorat ion to bilateral lower extremities. PSYCHIATRIC: Patient is alert and oriented x4. Nonfocal. LABORATORY DATA AND IMAGING: WBC 4.2, hemoglobin 10.0, hematocrit 27.6 and platelets 90. PT 15.7, I NR 1.2. Sodium 138, potassium 4.0, BUN 23, creatinine 0.98, AST 57, ALT 33 with a CK-MB of 2.7, trop onin level is negative x3. BNP is 1076, albumin 1.6, globulin 3.3. TSH is 1.3725. The patient's 12 -lead EKG in the ER shows sinus rhythm, no ST segment change or T-wave inversion. Chest x-ray, no ac loco intrathoracic abnormality. Patient never has a cardiac workup before. ASSESSMENT AND PLAN: 1. Chest pain. Although, the patient's troponin and cardiac enzymes are negative due to the history of hypertension, diabetes, and illicit drug abuse with cocaine, heroin, and family history of myocar dial infarction, I would like to order a stress test to rule out any myocardial abnormality at this t tahmina. The patient to be on nadolol 40 mg, aspirin 81 mg, and Lovenox 40 mg once a day. The patient's Lovenox was held this morning due to the low platelet level this morning. We would like to continue to monitor on telemetry. 2. Elevated BNP, which is possible due to cirrhosis or new onset of congestive heart failure. The p elizabeth's condition has been improving with Lasix 40 mg IV twice a day, spironolactone 50 mg twice a d ay. He is on the beta donna and if the patient's blood pressure is stable, we would like to start some LEONELA inhibitor for this patient. 3. Chronic hepatitis C with cirrhosis. Patient's condition is stable at this moment, which is manag ed by primary care doctor. 4. Diabetes type 2. The patient is on a.c. and at bedtime blood glucose check [facility], which is managed by the primary care doctor. 5. History of ETOH abuse. ETOH cessation education was given to the patient and family member today . 6. Anemia. Patient's CBC count is decreasing at this moment. We would like to continue to monitor. Thank you for allowing the Cardiology Service to participate in the care of this patient. We will fo llow along with the patient care team and recommend as appropriate.
[2017-12-04] MEDS ORDERED: ADENOSINE 60 MG/20 ML VIAL ONE (13:56)
--- NOTE | 2017-12-04 15:39 | NM ---
CARDIAC SPECT WITH EF AND WALL MOTION: HISTORY: A 57-year-old male with a history of chest pain. Adenosine sestamibi study is performed. The patient was injected with 30 mCi Technetium 99m sestamibi intravenously for stress images and 10 mCi Technetium 99m sestamibi intravenously for resting images. Multiple SPECT images in the short axis, vertical long axis, and horizontal long axis demonstrate no scan evidence for infarct or ischemia. TID 1.11. LHR 0.25. EDV elevated at 205 mL. EF is 55%. MYOCARDIAL PERFUSION WALL MOTION: Wall motion is unremarkable. IMPRESSION: Elevated EDV at 205 mL. 55% ejection fraction. No scan evidence for infarct or ischemia. POS: [facility]
[2017-12-04] MEDS: Acetaminophen 325 MG TAB PO PRN (17:47)
--- NOTE | 2017-12-04 18:16 | CON ---
DATE OF CONSULTATION: 12/04/2017 DATE OF ADMISSION: 12/03/2017 CARDIOLOGY CONSULT NOTE INDICATION FOR CONSULTATION: A 57-year-old patient with lower extremity edema. He was advised to undergo stress testing. We were asked to see him prior to undergoing a stress test and even I believe this is not yet complete, but we were asked to see the patient. He does have a history of cirrhosis and lower extremity edema, which has been present for about several months now. He has been seen by the industrial laborer who has been assisting with his cirrhosis, which is due to alcohol. He has been seen by Dr. Sanchez, I believe. He presented to the hospital after having lower extremity edema and some chest discomfort. This may be due to increased stress. He has been required to remain in the nursing home, Wednesday through for probation and when he came home, he became very upset because he had sleep failure and when he got home, it seemed to be more agitated and then asked his to bring him to the hospital. His cardiac enzymes have been negative. His stress test was unremarkable for any evidence of ischemia. He did have a slight dilatation in the left ventricular and diastolic dimensions and may have a cardiomegaly associated with the obviously his cirrhosis and most likely right-sided heart failure and with his lower extremity edema. I did not know that he has COPD. There is no indication that he has, but certainly with his other problems, this would not be too unusual, but there is no indication that the patient has any ischemia at this time. Echocardiogram is still pending. PAST MEDICAL HISTORY: Noted for the chronic hepatitis, alcohol abuse, type 2 diabetes. He has gastroesophageal reflux disease. He has had ascites in the past. He has had a history of hypertension. For his past medical history, social history, family history, review of systems , medications, please refer to notes dictated by the nurse practitioner Little Whitmore. PHYSICAL EXAMINATION: GENERAL: Reveals an elderly gentleman who is in no acute distress. He did become very frustrated and tearful during the examination, talking about having to stay in nursing home at night; however, I did not delve into the etiology of why he is there or the indication why he is there. VITAL SIGNS: Blood pressure is 132/84. He is afebrile, heart rate 73, respiratory rate 20, O2 saturation is 99%. HEENT: Reveals the head to be normocephalic and atraumatic. Carotid pulses are present without any bruits. CHEST: Clear to auscultation without rales, rhonchi or wheezing. CARDIOVASCULAR: Exam reveals a regular rate and rhythm. I did not hear any significant murmurs, heaves, thrills, bruits or rubs. ABDOMEN: Shows obesity. He does have what appears to be ascites, dull to percussion and a not palpating tenderness or masses. EXTREMITIES: Showed 2+ lower extremity edema from above the knees all the way down to the feet. Pedal pulses are barely palpable, but popliteal pulses appear to be normal. NEUROLOGIC: He appears to be intact except for what he does appear to be depressed and is tearful. LABORATORY FINDINGS: His laboratory data also was discussed by the nurse practitioner. His cardiac enzymes have remained negative and his blood sugars have been in the 250-270 range. His renal function appears to be relatively well preserved and normal with a creatinine of 0.99 and his hemoglobin was 10.0 with hematocrit 27.6 and WBC of 4.2. At this time, I do not have any further recommendations. We will need to evaluate the echodiogram to determine whether or not he has any type of pericardial effusion or whether or not he has right-sided failure.The stress test showed an ejection fraction about 55%. Further recommendations will depend on the echocardiogram, but at this time, there is no indication that the patient has any significant congestive heart failure, ( systolic dysfunction) and most likely this is a right-sided failure and may be diastolic dysfunction. MTDD
[2017-12-04] MEDS: tiZANidine HCl 4 MG TAB PO PRN (20:47)
[2017-12-05] MEDS ORDERED: Melatonin 3 MG TAB PO PRN (03:22)
[2017-12-05] MEDS: Insulin Glargine 30 UNITS in Pre-Filled Syringe 1 EACH SC SCH ×2 (08:31→21:26)
[2017-12-05] MEDS: HumaLOG 300 UNITS/3 ML VIAL SC PRN ×2 (08:52→17:45)
[2017-12-05] MEDS: Tetrahydrozoline 0.05% OPTH 15 ML BOT EA EYE SCH ×2 (08:53→21:26)
[2017-12-05] MEDS: Nadolol 40 MG TAB PO SCH (08:55)
[2017-12-05] MEDS: Spironolactone 25 MG TAB PO SCH (08:55)
[2017-12-05] MEDS: Enoxaparin Sodium 40 MG/0.4 ML SYRINGE SC SCH ×2 (08:59→09:34)
--- NOTE | 2017-12-05 10:34 | PDOC.PN ---
- Subjective Encounter Start Date: 12/05/17 Encounter Start Time: 09:45 Subjective: has swelling of his eyelids, no trouble breathing or itching -: no sob or chest pain or palp -: is moving all extremities, fell last night but no external injuries - Objective Resuscitation Status: Resuscitation Status FULL:Full Resuscitation MAR Reviewed: Yes Vital Signs & Weight: Vital Signs (12 hours) Temp Pulse Resp BP BP Pulse Ox 12/05/17 03:05 97.9 F 61 14 121/56 L 98 12/05/17 00:20 62 93/54 L 12/04/17 23:49 98.5 F 61 15 80/45 L 97 Weight Weight 244 lb 11.2 oz I&O: 12/04/17 12/05/17 12/06/17 06:59 06:59 06:59 Intake Total 960 Balance 960 Result Diagrams: 12/04/17 04:07 12/04/17 04:07 Additional Labs: Accuchecks 12/05/17 12/04/17 12/04/17 05:40 20:46 16:08 POC Glucose 188 H 286 H 271 H Phys Exam - Physical Examination HEENT: PERRLA, sclera anicteric Neck: no JVD, supple Respiratory: no wheezing, no rales Cardiovascular: RRR, no significant murmur Gastrointestinal: soft, no distention, positive bowel sounds abd wall edema in lower quadrants Musculoskeletal: pulses present, edema present Neurological: non-focal, moves all 4 limbs Psychiatric: normal affect, A&O x 3 Dx/Plan (1) Acute exacerbation of CHF (congestive heart failure) Code(s): I50.9 - HEART FAILURE, UNSPECIFIED Status: Acute Qualifiers: Heart failure type: diastolic Qualified Code(s): I50.33 - Acute on chronic diastolic (congestive) heart failure Comment: await echo results, ef of 55% on stress test (2) Cirrhosis of liver Code(s): K74.60 - UNSPECIFIED CIRRHOSIS OF LIVER Status: Chronic Qualifiers: Ascites presence: with ascites Comment: sec to hep C and prior alcohol abuse (3) DM type 2 (diabetes mellitus, type 2) Status: Chronic Qualifiers: Diabetes mellitus retirement insulin use: with retirement use Diabetes mellitus complication status: with unspecified complications Qualified Code(s) : E11.8 - Type 2 diabetes mellitus with unspecified complications; Z79.4 - jail (current) use of insulin (4) Hepatitis C infection Code(s): B19.20 - UNSPECIFIED VIRAL HEPATITIS C WITHOUT HEPATIC COMA Status: Chronic Qualifiers: Viral hepatitis chronicity: chronic Hepatic coma status: without hepatic coma Qualified Code(s): B18.2 - Chronic viral hepatitis C (5) Hypoalbuminemia Code(s): E88.09 - OTH DISORDERS OF PLASMA-PROTEIN METABOLISM, NEC Status: Chronic Comment: due to liver failure - Plan hold diuretics, is vol depleted, has anasarca with very low albumin -: stress test showed no reversible isch, has high tid and end diast vol -: not sure if has drug allergy/seasonal allergy with b/l eye chemosis and lid -: -edema, iv steroids, benadryl and pepcid -: on aspirin and nadolol (if he gets worse will hold aspirin) * . To ambulate with walking program Make him wear rodriguez hose please, has chronic LE edema which infact is better than before per patient. Might need to be transplant list, will check urinalysis for proteinuria. Review of Systems - Medications/Allergies Allergies/Adverse Reactions: Allergies Allergy/AdvReac Type Severity Reaction Status Date / Time No Known Allergies Allergy Verified 11/02/17 21:05 Medications: Current Medications Acetaminophen (Tylenol) 650 mg PO Q4H PRN PRN Reason: Headache/Fever or Pain Last Admin: 12/04/17 17:47 Dose: 650 mg Aspirin (Aspirin Chewable) 81 mg PO DAILY [facility] Last Admin: 12/05/17 08:55 Dose: 81 mg Dextrose/Water (Dextrose 50%) 25 gm SLOW IVP PRN PRN PRN Reason: Hypoglycemia Diphenhydramine HCl (Benadryl) 25 mg PO TID [facility] Enoxaparin Sodium (Lovenox) 40 mg SC 0900 [facility] Last Admin: 12/05/17 09:34 Dose: 40 mg Famotidine (Pepcid) 20 mg PO BID O[facility] Glucagon (Glucagon) 1 mg IM PRN PRN PRN Reason: Hypoglycemia Guaifenesin/Dextromethorphan (Robitussin Dm) 15 ml PO Q4H PRN PRN Reason: Cough Dextrose/Water (D5w) 1,000 mls @ 0 mls/hr IV .Q0M PRN PRN Reason: Hypoglycemia Insulin Glargine 30 units/ (Miscellaneous Medication) 0.3 mls @ 0 mls/hr SC BID [facility] Last Admin: 12/05/17 08:31 Dose: 0.3 mls Insulin Human Lispro (Humalog) 0 units SC .MODERATE SLIDING SC PRN PRN Reason: Moderate Correctional Scale Last Admin: 12/05/17 08:52 Dose: 2 unit Insulin Human Lispro (Humalog) 0 units SC .BEDTIME SLIDING SC PRN PRN Reason: Bedtime Correctional Scale Melatonin (Melatonin) 3 mg PO HSPRN PRN PRN Reason: Insomnia Methylprednisolone Sodium Succinate (Solu-Medrol) 20 mg IVP Q8HR [facility] Nadolol (Corgard) 40 mg PO DAILY [facility] Last Admin: 12/05/17 08:55 Dose: 40 mg Pantoprazole Sodium (Protonix) 40 mg PO DAILY [facility] Last Admin: 12/05/17 08:54 Dose: 40 mg Tetrahydrozoline HCl (Visine Ac 0.05% Opth) 2 drop EA EYE BID [facility] Last Admin: 12/05/17 08:53 Dose: 2 drop
[2017-12-05 10:58] LABS: #Eosinphils 0.6 thou/uL (0.0-0.7); #Lymphocytes 2.1 thou/uL (1.20-3.40); #Monocytes 0.3 thou/uL (0.11-0.59); #Neutrophils 2.6 thou/uL (1.40-6.50); %Basophils 0.3 % (0.0-1.0); %Eosinophils 10.3 % (0.0-10.0); %Lymphocytes 37.5 % (21.0-51.0); %Monocytes 6.1 % (0.0-10.0); %Neutrophils 45.8 % (42.0-75.0); Hemoglobin 11.4 g/dL (14.0-18.0); Mean Corpuscular HGB CONC 36.1 g/dL (32.0-36.0); Mean Corpuscular Hemoglobin 32.8 pg (27.0-31.0); Mean Corpuscular Volume 90.6 fL (78.0-98.0); Mean Platelet Volume 7.1 fL (7.4-10.4); Platelet Count 93 thou/uL (130-400); RBC Distribution Width 12.7 % (11.5-14.5); Red Blood Cell (RBC) Count 3.49 mill/uL (4.70-6.10); White Blood Cell (WBC) Count 5.6 thou/uL (4.8-10.8)
[2017-12-05] MEDS ORDERED: Famotidine 20 MG TAB PO SCH (11:00)
[2017-12-05] MEDS ORDERED: diphenhydrAMINE 25 MG CAP PO SCH (11:00)
[2017-12-05 11:08] LABS: ALT (SGPT) 35 U/L (8-55); AST (SGOT) 57 U/L (5-34); Albumin 1.7 g/dL (3.5-5.0); Alkaline Phosphatase 129 U/L (40-150); Anion Gap 7 mmol/L (10-20); BUN (Urea Nitrogen) 28 mg/dL (8.4-25.7); Bilirubin, Total 1.1 mg/dL (0.2-1.2); Calc. Creatinine Clearance 144 mL/min (70-130); Calcium 7.8 mg/dL (7.8-10.44); Carbon Dioxide 24 mmol/L (22-29); Chloride 112 mmol/L (98-107); Estimated GFR-MDRD 87; Globulin 3.3 g/dL (2.4-3.5); Glucose 144 mg/dL (70-105); Potassium 4.2 mmol/L (3.5-5.1); Sodium 139 mmol/L (136-145)
[2017-12-05 11:45] LABS: Bilirubin Small (Negative); Blood, Urine Large (Negative); Clarity CLOUDY (Clear); Glucose, Urine (Dipstick) 250 mg/dL (Negative); Leukocyte Small (Negative); Nitrite Negative (Negative); Protein, Urine (Dipstick) 300 mg/dL (Neg-Trace); Specific Gravity, Urine 1.023 (1.002-1.036)
[2017-12-05 11:46] LABS: Bacteria/HPF 1+ HPF (None Seen); Hyaline Casts/LPF 4-6 HYALINE CAST LPF (0-3 Hyaline); Pathc Cast-AUWi Flag 0.72 (0-2.49); Squamous Epithelial 0-3 HPF (0-3)
[2017-12-05 11:54] LABS: Sperm-AUWi Flag 627.7 (0-9.9)
[2017-12-05 12:03] LABS: Oval Fat Bodies/HPF None Seen HPF (None Seen); Renal Epithelial None Seen HPF (0-3); Transitional Epithelial NONE SEEN HPF (0-3); Trichomonas/HPF None Seen HPF (None Seen)
[2017-12-05 12:04] LABS: Sperm/HPF 1+ HPF (None Seen)
[2017-12-05] MEDS: diphenhydrAMINE 25 MG CAP PO SCH ×2 (14:59→21:26)
--- NOTE | 2017-12-05 16:07 | PDOC.CTH ---
<Little Whitmore - Last Filed: 12/05/17 16:15> Cardiology Progress Note - Subjective The pt seen and examined. No overnight events. No cardiac complaints. - Objective Vital Signs Temp Pulse Pulse Pulse Resp BP BP 12/05/17 11:17 98.3 F 61 15 12/05/17 10:24 63 58 L 181/84 H 158/78 H 12/05/17 08:05 98.3 F 61 15 BP Pulse Ox Pulse Ox Pulse Ox 12/05/17 11:17 152/74 H 99 12/05/17 10:24 98 100 12/05/17 08:05 99 Weight 244 lb 11.2 oz 12/04/17 12/05/17 12/06/17 06:59 06:59 06:59 Intake Total 960 Balance 960 - Physical Examination General/Neuro: alert & oriented x3 Neck: no JVD present Lungs: CTA Heart: RRR Abdomen: soft Extremities: other: (3-4+ pitting BLE edema) - Telemetry Telemetry Rhythm: SR 60s - Labs Result Diagrams: 12/05/17 10:38 12/05/17 10:38 Troponin/CKMB CK-MB (CK-2) 2.7 ng/mL (0-6.6) 12/03/17 13:42 Troponin I Less than 0.010 ng/mL (< 0.028) 12/03/17 21:08 - Assessment/Plan 1. Acute on Chronic Diastolic HF - SOB had improved with Lasix 40mg IV BID which is stopped. Cont Spironolactone 50mg BID. Start Lisinopril 10mg qd. TEDs for BLE edema. 2. HTN - Start Lisinopril 10mg qd from today. 3. Chronic Hep C with Cirrhosis 2/2 ETOH abuse - stable 4. Dm type 2 - managed by PCP 5. Anemia - stable 6. CP - resolved; Stress test on 12/04/17 showed no ischemia. MAR reviewed * Echo on 12/04/17 showed EF 50-55%, borderline LVH, mild dilated bilat. atrium , mild MR, trace TR, and mild FL. Review of Systems - Review of Systems Constitutional: reports: no symptoms reported EENTM: reports: no symptoms reported Respiratory: reports: no symptoms reported Cardiac (ROS): reports: no symptoms reported ABD/GI: reports: no symptoms reported : reports: no symptoms reported Musculoskeletal: reports: no symptoms reported <Jammie Kevin - Last Filed: 12/05/17 18:08> Cardiology Progress Note - Objective Vital Signs Temp Pulse Pulse Pulse Resp BP BP 12/05/17 17:44 182/81 H 12/05/17 16:25 98.1 F 69 16 12/05/17 11:17 98.3 F 61 15 12/05/17 10:24 63 58 L 181/84 H 12/05/17 08:05 98.3 F 61 15 BP BP Pulse Ox Pulse Ox Pulse Ox 12/05/17 17:44 12/05/17 16:25 182/81 H 100 12/05/17 11:17 152/74 H 99 12/05/17 10:24 158/78 H 98 100 12/05/17 08:05 99 Weight 244 lb 11.2 oz 12/04/17 12/05/17 12/06/17 06:59 06:59 06:59 Intake Total 960 Balance 960 - Labs Result Diagrams: 12/05/17 10:38 12/05/17 10:38 Troponin/CKMB CK-MB (CK-2) 2.7 ng/mL (0-6.6) 12/03/17 13:42 Troponin I Less than 0.010 ng/mL (< 0.028) 12/03/17 21:08 - Assessment/Plan Pt. seen and eval. by me. I gave him the echo results. EF: 50-55%. I agree with the A/P by the FLUE CLEANER. I will sign off. If any further cardiac issues then please consult me again.
[2017-12-05] MEDS ORDERED: Lisinopril 10 MG TAB PO SCH (16:45)
[2017-12-05] MEDS: Famotidine 20 MG TAB PO SCH (21:25)
[2017-12-06 05:21] LABS: #Lymphocytes 1.2 thou/uL (1.20-3.40); #Monocytes 0.2 thou/uL (0.11-0.59); #Neutrophils 4.2 thou/uL (1.40-6.50); %Basophils 0.2 % (0.0-1.0); %Eosinophils 0.2 % (0.0-10.0); %Lymphocytes 21.1 % (21.0-51.0); %Monocytes 3.8 % (0.0-10.0); %Neutrophils 74.7 % (42.0-75.0); Mean Corpuscular HGB CONC 35.7 g/dL (32.0-36.0); Mean Corpuscular Hemoglobin 32.3 pg (27.0-31.0); Mean Corpuscular Volume 90.4 fL (78.0-98.0); Mean Platelet Volume 7.6 fL (7.4-10.4); Platelet Count 97 thou/uL (130-400); RBC Distribution Width 12.8 % (11.5-14.5); Red Blood Cell (RBC) Count 3.71 mill/uL (4.70-6.10); White Blood Cell (WBC) Count 5.6 thou/uL (4.8-10.8)
[2017-12-06 05:25] LABS: ALT (SGPT) 33 U/L (8-55); AST (SGOT) 48 U/L (5-34); Albumin 1.7 g/dL (3.5-5.0); Alkaline Phosphatase 124 U/L (40-150); Anion Gap 9 mmol/L (10-20); BUN (Urea Nitrogen) 30 mg/dL (8.4-25.7); Bilirubin, Total 1.3 mg/dL (0.2-1.2); Calc. Creatinine Clearance 136 mL/min (70-130); Calcium 7.5 mg/dL (7.8-10.44); Carbon Dioxide 20 mmol/L (22-29); Chloride 112 mmol/L (98-107); Estimated GFR-MDRD 82; Globulin 3.4 g/dL (2.4-3.5); Glucose 264 mg/dL (70-105); Potassium 4.5 mmol/L (3.5-5.1); Protein, Total 5.1 g/dL (6.0-8.3); Sodium 136 mmol/L (136-145)
[2017-12-06] MEDS ORDERED: Lisinopril 10 MG TAB PO SCH (09:00)
[2017-12-06] MEDS: Insulin Glargine 30 UNITS in Pre-Filled Syringe 1 EACH SC SCH (09:51)
[2017-12-06] MEDS: Tetrahydrozoline 0.05% OPTH 15 ML BOT EA EYE SCH (09:52)
[2017-12-06] MEDS: Enoxaparin Sodium 40 MG/0.4 ML SYRINGE SC SCH (09:53)
[2017-12-06] MEDS: Famotidine 20 MG TAB PO SCH (09:54)
[2017-12-06] MEDS: Acetaminophen 325 MG TAB PO PRN (09:54)
[2017-12-06] MEDS: Nadolol 40 MG TAB PO SCH (09:55)
[2017-12-06] MEDS: diphenhydrAMINE 25 MG CAP PO SCH (09:55)
[2017-12-06 10:29] VITALS: TEMP 98.5
[2017-12-06 12:02] VITALS: BP 184/84
--- NOTE | 2017-12-06 12:40 | PDOC.CTH ---
Cardiology Progress Note - Subjective The pt seen and examined. No overnight events. No cardiac complaints. He is thinking about joining Cardiac rehab. - Objective Vital Signs Temp Pulse Pulse Pulse Resp BP BP 12/06/17 09:00 71 67 184/84 H 178/80 H 12/06/17 08:00 98.5 F 47 L 18 12/06/17 03:18 98.1 F 66 12 BP Pulse Ox Pulse Ox Pulse Ox 12/06/17 09:00 98 99 12/06/17 08:00 115/61 95 12/06/17 03:18 142/70 H 97 Weight 245 lb 1.6 oz 12/05/17 12/06/17 12/07/17 06:59 06:59 06:59 Intake Total 960 140 Output Total 475 Balance 960 -335 - Physical Examination General/Neuro: alert & oriented x3 Neck: no JVD present Lungs: other: (diminished at bases) Heart: RRR Abdomen: soft Extremities: other: (2 pitting BLE edema) - Telemetry Telemetry Rhythm: SR - Labs Result Diagrams: 12/06/17 04:53 12/06/17 04:53 Troponin/CKMB CK-MB (CK-2) 2.7 ng/mL (0-6.6) 12/03/17 13:42 Troponin I Less than 0.010 ng/mL (< 0.028) 12/03/17 21:08 - Assessment/Plan 1. Acute on Chronic Diastolic HF - stable with Lasix 20mg BID; Cont Spironolactone 50mg BID, Lisinopril 10mg qd. Instructed to wear TEDs for BLE edema. 2. HTN - stable with current med. 3. Chronic Hep C with Cirrhosis 2/2 ETOH abuse - stable 4. Dm type 2 - managed by PCP 5. Anemia - stable 6. CP - resolved; Stress test on 12/04/17 showed no ischemia. MAR reviewed * Echo on 12/04/17 showed EF 50-55%, borderline LVH, mild dilated bilat. atrium , mild MR, trace TR, and mild DE. * From Cardiac standpoint, the pt is stable to d/c home. The pt will f/u with Dr Kevin' office within 2-4wks. Review of Systems - Review of Systems Constitutional: reports: no symptoms reported EENTM: reports: no symptoms reported Respiratory: reports: no symptoms reported Cardiac (ROS): reports: no symptoms reported ABD/GI: reports: no symptoms reported : reports: no symptoms reported Musculoskeletal: reports: no symptoms reported Skin: reports: no symptoms reported
--- NOTE | 2017-12-06 13:20 | PDOC.PN ---
- Subjective Encounter Start Date: 12/06/17 Encounter Start Time: 10:15 Subjective: eyelid edema is receding, no sob or trouble swallowing -: at bedside -: is ambulating, no chest pain or abd pain - Objective Resuscitation Status: Resuscitation Status FULL:Full Resuscitation MAR Reviewed: Yes Vital Signs & Weight: Vital Signs (12 hours) Temp Pulse Pulse Pulse Resp BP BP 12/06/17 09:00 71 67 184/84 H 178/80 H 12/06/17 08:00 98.5 F 47 L 18 12/06/17 03:18 98.1 F 66 12 BP Pulse Ox Pulse Ox Pulse Ox 12/06/17 09:00 98 99 12/06/17 08:00 115/61 95 12/06/17 03:18 142/70 H 97 Weight Weight 245 lb 1.6 oz I&O: 12/05/17 12/06/17 12/07/17 06:59 06:59 06:59 Intake Total 960 140 Output Total 475 Balance 960 -335 Result Diagrams: 12/06/17 04:53 12/06/17 04:53 Additional Labs: Accuchecks 12/06/17 12/06/17 12/05/17 11:13 05:57 20:32 POC Glucose 293 H 224 H 281 H 12/05/17 12/03/17 16:24 18:18 POC Glucose 242 H 249 H Phys Exam - Physical Examination HEENT: PERRLA, moist MMs Neck: no JVD, supple Respiratory: no wheezing, no rales Cardiovascular: RRR, no significant murmur Gastrointestinal: soft, no distention, positive bowel sounds abd wall edema Musculoskeletal: pulses present, edema present Neurological: non-focal, moves all 4 limbs Psychiatric: normal affect, A&O x 3 Dx/Plan (1) Acute exacerbation of CHF (congestive heart failure) Code(s): I50.9 - HEART FAILURE, UNSPECIFIED Status: Acute Qualifiers: Heart failure type: diastolic Qualified Code(s): I50.33 - Acute on chronic diastolic (congestive) heart failure Comment: await echo results, ef of 55% on stress test (2) Cirrhosis of liver Code(s): K74.60 - UNSPECIFIED CIRRHOSIS OF LIVER Status: Chronic Qualifiers: Ascites presence: with ascites Comment: sec to hep C and prior alcohol abuse (3) DM type 2 (diabetes mellitus, type 2) Status: Chronic Qualifiers: Diabetes mellitus exterminator termite insulin use: with exterminator termite use Diabetes mellitus complication status: with unspecified complications Qualified Code(s) : E11.8 - Type 2 diabetes mellitus with unspecified complications; Z79.4 - regional intermodal truck driver (current) use of insulin (4) Hepatitis C infection Code(s): B19.20 - UNSPECIFIED VIRAL HEPATITIS C WITHOUT HEPATIC COMA Status: Chronic Qualifiers: Viral hepatitis chronicity: chronic Hepatic coma status: without hepatic coma Qualified Code(s): B18.2 - Chronic viral hepatitis C (5) Hypoalbuminemia Code(s): E88.09 - OTH DISORDERS OF PLASMA-PROTEIN METABOLISM, NEC Status: Chronic Comment: due to liver failure - Plan has appt to see in am -: d/w will arrange outpt appt to see him for severe proteinuria/hep C -: may dc home, pred x 4 days for ?allergic reaction -: will hold off on lisinopril due to above and start when stable as outpt -: continue asp, levemir, nadolol, spironolactone. Add cipro for uti * . Has very low albumin levels, needs Hep C treatment to be started, is seeing in am. Might be a transplant candidate? trial of hep c treatment to see if he get better.
--- NOTE | 2017-12-06 23:19 | DIS ---
DATE OF ADMISSION: 12/03/2017 DATE OF DISCHARGE: 12/06/2017 DISCHARGE DISPOSITION: To home. PRIMARY DISCHARGE DIAGNOSIS: Acute congestive heart failure exacerbation with diastolic dysfunction and ejection fraction of 50%, [place] Heart Failure classification stage 2. SECONDARY DISCHARGE DIAGNOSES: Urinary tract infection, hypoalbuminemia, hepatitis C, diabetes melli tus type 2, cirrhosis of liver secondary to prior alcohol abuse and hepatitis C. PROCEDURES DONE DURING HOSPITALIZATION: Chest x-ray done showed no acute intrathoracic abnormality. Nuclear stress test done showed no infarct or ischemia evidence, end diastolic volume was 205, wall motion was unremarkable. Echo with 2D Doppler showed an EF of 50%-55% with borderline LVH. H and H 12 and 33, platelet count 97,000, white count of 5.6. INR 1.2, PT 15.7, albumin is 1.7, total biliru bin 1.3, AST 48, ALT is 33, alkaline phosphatase 124, BUN 30, creatinine 0.9. UA showed 300 mg per d eciliter of protein, small leukocyte esterase with 11-20 WBCs and 1+ bacteria. DISCHARGE MEDICATIONS: Ciprofloxacin 500 mg p.o. twice daily for 4 days for UTI, Levemir 40 units aquino bcutaneously twice daily, Lasix 40 mg daily, nadolol 40 mg daily, prednisone 5 mg daily for 4 days, B enadryl 25 mg twice daily for 2 days, spironolactone 50 mg p.o. twice daily. ALLERGIES: No known drug allergies. DISCHARGE PLAN: The patient has a followup appointment with Dr. Asif Sanchez tomorrow. He will also f ollow up with Dr. Smith in his office for proteinuria with history of hep C and hypoalbuminemia. He al so needs follow up with his primary care physician in 1 week. BRIEF COURSE DURING HOSPITALIZATION: The patient initially got admitted on the with complaints o f chest heaviness and shortness of breath. The patient had gentle diuresis done initial 24 hours and his diuretics were held as the patient was volume depleted. He has had consultation with Dr. Dorita espino or Cardiology. The patient had a nuclear stress test done, which showed no reversible ischemia. His ejection fraction was 50% on the echo with likely diastolic dysfunction. During the course of his s melanie here, the patient developed bilateral eyelid swelling and had subconjunctival hemorrhage in the r ight eye. The patient was likely having allergic reaction and was placed on steroids along with Elsi dryl and Pepcid. He has responded well to this measure. It is unclear of the exact source of his al lergic symptoms. At the time of discharge, his eyelid swelling has receded and has no trouble swallo wing or difficulty breathing. Please note that no LEONELA or ARBs were placed on him in view of his justin rgic reaction and slight bump in his BUN due to the gentle diuresis done during hospitalization. He needs to continue nadolol, spironolactone, Lasix and Levemir as before with 4-day course of 5 mg of p rednisone for the allergic reaction. The patient has followup appointment with Dr. Asif Sanchez for chel patricia and will likely need to be placed on hepatitis C treatment. He has severe hypoalbuminemia wit h levels of 1.7 mg. The patient also has massive proteinuria. I have discussed his findings with Dr Omar Smith whose office will call him for followup appointment as well to rule out hepatitis C induced julio csear al disease. The patient has severe thrombocytopenia as well. He needs to be closely followed up for his hepatitis C treatment and might become a transplant candidate if he is resistant to treatment. Please see a [id number] documentation on [facility] for the day of discharge.
== END 2017-12-06 13:49 | disposition home or self-care (01) | DRG 292 ==
LOC: ERS 13:26 → 2NO 17:14
PROVIDERS: ADMIT Internal Medicine; ATTEND Internal Medicine
DX: I11.0 Hypertensive heart disease with heart failure (principal); N39.0 Urinary tract infection, site not specified; I42.9 Cardiomyopathy, unspecified; I50.33 Acute on chronic diastolic (congestive) heart failure; B18.2 Chronic viral hepatitis C; E11.9 Type 2 diabetes mellitus without complications; H11.30 Conjunctival hemorrhage, unspecified eye; D69.59 Other secondary thrombocytopenia; K70.30 Alcoholic cirrhosis of liver without ascites; B19.20 Unspecified viral hepatitis C without hepatic coma; E88.09 Other disorders of plasma-protein metabolism, not elsewhere classified; D64.9 Anemia, unspecified; Z82.49 Family history of ischemic heart disease and other diseases of the circulatory system; K21.9 Gastro-esophageal reflux disease without esophagitis; Z79.4 Long term (current) use of insulin
CPT/HCPCS: 36415; 36416; 71045; 78452; 80048; 80053; 81001; 82550; 82553; 83880; 84443; 84484; 84550; 85025; 85610; 85730; 93005; 93017; 93306; 93798; 94760; 96374; A9500; G8978-GP-CJ; G8979-GP-CJ; G8980-GP-CJ; J0153; J1650; J1940; J2920

== ENCOUNTER 2017-12-08 09:55 | Emergency (ER) | payer MEDICAID ==
[2017-12-08 10:35] LABS: #Basophils 0.1 thou/uL (0.0-0.2); #Eosinphils 0.7 thou/uL (0.0-0.7); #Lymphocytes 2.9 thou/uL (1.20-3.40); #Monocytes 0.5 thou/uL (0.11-0.59); #Neutrophils 4.2 thou/uL (1.40-6.50); %Basophils 1.2 % (0.0-1.0); %Eosinophils 8.8 % (0.0-10.0); %Lymphocytes 34.2 % (21.0-51.0); %Monocytes 5.5 % (0.0-10.0); %Neutrophils 50.4 % (42.0-75.0); Hemoglobin 13.1 g/dL (14.0-18.0); Mean Corpuscular HGB CONC 36.4 g/dL (32.0-36.0); Mean Corpuscular Hemoglobin 33.1 pg (27.0-31.0); Mean Corpuscular Volume 90.9 fL (78.0-98.0); Mean Platelet Volume 7.3 fL (7.4-10.4); Platelet Count 121 thou/uL (130-400); RBC Distribution Width 13.1 % (11.5-14.5); Red Blood Cell (RBC) Count 3.95 mill/uL (4.70-6.10); White Blood Cell (WBC) Count 8.4 thou/uL (4.8-10.8)
[2017-12-08 11:03] LABS: CKMB 2.6 ng/mL (0-6.6); Troponin I Less than 0.010 ng/mL (< 0.028)
[2017-12-08 11:04] LABS: ALT (SGPT) 32 U/L (8-55); AST (SGOT) 49 U/L (5-34); Albumin 1.7 g/dL (3.5-5.0); Alkaline Phosphatase 114 U/L (40-150); Anion Gap 9 mmol/L (10-20); BUN (Urea Nitrogen) 19 mg/dL (8.4-25.7); Bilirubin, Total 1.9 mg/dL (0.2-1.2); CK (CPK) 187 U/L (30-200); Calc. Creatinine Clearance 0 mL/min (70-130); Calcium 7.7 mg/dL (7.8-10.44); Carbon Dioxide 21 mmol/L (22-29); Chloride 114 mmol/L (98-107); Estimated GFR-MDRD Greater than 90; Globulin 3.2 g/dL (2.4-3.5); Glucose 207 mg/dL (70-105); Lipase 23 U/L (8-78); Potassium 3.9 mmol/L (3.5-5.1); Protein, Total 4.9 g/dL (6.0-8.3); Sodium 140 mmol/L (136-145)
[2017-12-08 11:12] LABS: Bilirubin Negative (Negative); Blood, Urine Moderate (Negative); Clarity CLEAR (Clear); Glucose, Urine (Dipstick) Negative (Negative); Leukocyte Negative (Negative); Nitrite Negative (Negative); Protein, Urine (Dipstick) 100 mg/dL (Neg-Trace)
[2017-12-08 11:13] LABS: Bacteria/HPF None Seen HPF (None Seen); Hyaline Casts/LPF 4-6 HYALINE CAST LPF (0-3 Hyaline); Pathc Cast-AUWi Flag 0.29 (0-2.49); Squamous Epithelial 0-3 HPF (0-3); WBC/HPF 0-3 HPF (0-3)
--- NOTE | 2017-12-08 11:27 | CT ---
NONCONTRAST CT HEAD: Date: 12/08/17 HISTORY: Altered mental status. COMPARISON: 06/29/14. FINDINGS: Calcification right basal ganglia is again seen and unchanged. There is no evidence of an acute corti shira infarction, hemorrhage, mass effect, or midline shift. Ventricular system is normal in size, shap e, and position for the degree of sulcal atrophy. Calvarial structures are intact. There is mild muco bailey thickening seen in ethmoidal air cells bilaterally. Mastoid air cells are clear. IMPRESSION: 1. No acute intracranial abnormality is demonstrated. 2. Mild cerebral volume loss. POS: [facility]
== END 2017-12-08 12:08 | disposition home or self-care (01) ==
LOC: ERS 09:55
DX: K72.90 Hepatic failure, unspecified without coma (principal); I10 Essential (primary) hypertension; E11.9 Type 2 diabetes mellitus without complications; Z87.891 Personal history of nicotine dependence; Z79.899 Other long term (current) drug therapy
CPT/HCPCS: 70450; 80053; 81003; 81015; 82140; 82550; 82553; 83690; 83880; 84443; 84484; 85025; 93005; 94760

== ENCOUNTER 2017-12-12 16:03 | Emergency (ER) | payer MEDICAID ==
--- NOTE | 2017-12-12 16:44 | RAD ---
CHEST ONE VIEW: HISTORY: Chest pain. COMPARISON: Radiograph from 12/03/2017. FINDINGS: There are linear opacities in the left lung base. The remainder of the lungs are clear. No pneumoth orax or effusion. IMPRESSION: Linear opacities, left lung base, may reflect developing infection. POS: [facility]
[2017-12-12 16:56] LABS: #Basophils 0.1 thou/uL (0.0-0.2); #Eosinphils 0.4 thou/uL (0.0-0.7); #Lymphocytes 2.4 thou/uL (1.20-3.40); #Monocytes 0.6 thou/uL (0.11-0.59); #Neutrophils 3.9 thou/uL (1.40-6.50); %Eosinophils 5.8 % (0.0-10.0); %Lymphocytes 32.2 % (21.0-51.0); %Monocytes 8.4 % (0.0-10.0); %Neutrophils 52.7 % (42.0-75.0); Hemoglobin 11.9 g/dL (14.0-18.0); Mean Corpuscular Hemoglobin 32.8 pg (27.0-31.0); Mean Corpuscular Volume 91.2 fL (78.0-98.0); Mean Platelet Volume 7.8 fL (7.4-10.4); Platelet Count 92 thou/uL (130-400); RBC Distribution Width 13.2 % (11.5-14.5); Red Blood Cell (RBC) Count 3.63 mill/uL (4.70-6.10); White Blood Cell (WBC) Count 7.3 thou/uL (4.8-10.8)
[2017-12-12 16:58] LABS: INR-International Normal Ratio 1.3; PTT 30.1 SEC (22.9-36.1); Prothrombin Time 15.8 SEC (12.0-14.7)
[2017-12-12 17:12] LABS: ALT (SGPT) 32 U/L (8-55); AST (SGOT) 48 U/L (5-34); Albumin 1.5 g/dL (3.5-5.0); Alkaline Phosphatase 182 U/L (40-150); Anion Gap 9 mmol/L (10-20); BUN (Urea Nitrogen) 14 mg/dL (8.4-25.7); Bilirubin, Total 1.2 mg/dL (0.2-1.2); CK (CPK) 174 U/L (30-200); Calc. Creatinine Clearance 0 mL/min (70-130); Calcium 7.3 mg/dL (7.8-10.44); Carbon Dioxide 22 mmol/L (22-29); Chloride 107 mmol/L (98-107); Estimated GFR-MDRD 77; Globulin 2.9 g/dL (2.4-3.5); Glucose 460 mg/dL (70-105); Protein, Total 4.4 g/dL (6.0-8.3); Sodium 134 mmol/L (136-145)
[2017-12-12 17:19] LABS: CKMB 3.7 ng/mL (0-6.6); Troponin I Less than 0.010 ng/mL (< 0.028)
--- NOTE | 2017-12-12 17:29 | CT ---
CT BRAIN WITHOUT CONTRAST: HISTORY: Altered mental status. COMPARISON: CT brain from 12/08/2017. FINDINGS: No acute hemorrhage or infarct. Senile calcifications at the lateral basal ganglia. No midline shif t or mass effect. The paranasal sinuses and mastoids are clear. IMPRESSION: No acute intracranial abnormality or significant change from four days prior. POS: [facility]
[2017-12-12 18:34] LABS: Bilirubin Negative (Negative); Blood, Urine Moderate (Negative); Clarity CLOUDY (Clear); Glucose, Urine (Dipstick) >=1000 mg/dL (Negative); Leukocyte Negative (Negative); Nitrite Negative (Negative); Protein, Urine (Dipstick) 100 mg/dL (Neg-Trace); Specific Gravity, Urine 1.016 (1.002-1.036); pH, Urine 5.5 (5.0-9.0)
[2017-12-12 18:39] LABS: Bacteria/HPF None Seen HPF (None Seen); Hyaline Casts/LPF 7-10 HYALINE CAST LPF (0-3 Hyaline); Pathc Cast-AUWi Flag 2.03 (0-2.49); Squamous Epithelial 0-3 HPF (0-3); WBC/HPF 0-3 HPF (0-3)
--- NOTE | 2017-12-18 13:38 | EKG ---
Test Reason : Blood Pressure : / mmHG Vent. Rate : 072 BPM Atrial Rate : 072 BPM P-R Int : 160 ms QRS Dur : 094 ms QT Int : 412 ms P-R-T Axes : 022 -14 116 degrees QTc Int : 451 ms Normal sinus rhythm Nonspecific T wave abnormality Abnormal ECG Confirmed by TESSA RHODES, ALEXYS ([id number]), commissioning editor KAYLA ORTIZ ([id number]) on 12/18/2017 1:37:56 PM Referred By: Confirmed By:ALEXYS ZARATE MD
== END 2017-12-12 19:20 | disposition home or self-care (01) ==
LOC: ERS 16:03
DX: R06.00 Dyspnea, unspecified (principal); K74.60 Unspecified cirrhosis of liver; E11.9 Type 2 diabetes mellitus without complications; I10 Essential (primary) hypertension; Z79.4 Long term (current) use of insulin
CPT/HCPCS: 36415; 70450; 71045; 80053; 81003; 81015; 82140; 82550; 82553; 84484; 85025; 85610; 85730; 93005

== ENCOUNTER 2018-01-05 11:05 | Outpatient (CLI) | payer MEDICAID ==
--- NOTE | 2018-01-05 13:50 | RAD ---
PA AND LATERAL CHEST: HISTORY: Opiod abuse. COMPARISON: 05/30/2017 exam. FINDINGS: The heart size appears slightly enlarged. Some linear scar or atelectasis in the left base. No foca l infiltrates or signs of failure. IMPRESSION: Borderline to minimal cardiomegaly. POS: [facility]
--- NOTE | 2018-01-05 13:56 | RAD ---
ABDOMEN 1 VIEW: HISTORY: A 57-year-old male with a history of opiod abuse. Abnormal findings on exam in the abdominal region. FINDINGS: Gas and fecal material noted in the colon. No evidence of large or small bowel obstruction. No over t calculus. IMPRESSION: Unremarkable abdomen 1 view. POS: [facility]
== END 2018-01-05 11:06 | disposition home or self-care (01) ==
LOC: RAD 11:05
PROVIDERS: ATTEND Family Medicine
DX: R93.5 Abnormal findings on diagnostic imaging of other abdominal regions, including retroperitoneum (principal); I51.7 Cardiomegaly; Z92.89 Personal history of other medical treatment
CPT/HCPCS: 71046; 74018

== ENCOUNTER 2018-06-17 12:00 | Outpatient (CLI) | payer MEDICARE, OTHER ==
[2018-06-17 12:47] LABS: Mean Corpuscular Volume 94.3 fL (78.0-98.0); Mean Platelet Volume 6.2 fL (7.4-10.4); Platelet Count 170 thou/uL (130-400); RBC Distribution Width 12.9 % (11.5-14.5); Red Blood Cell (RBC) Count 2.74 mill/uL (4.70-6.10); White Blood Cell (WBC) Count 7.4 thou/uL (4.8-10.8)
[2018-06-17 12:57] LABS: INR-International Normal Ratio 1.2; Prothrombin Time 15.4 SEC (12.0-14.7)
[2018-06-17 13:10] LABS: Anion Gap 8 mmol/L (10-20); BUN (Urea Nitrogen) 39 mg/dL (8.4-25.7); Calc. Creatinine Clearance 0 mL/min (70-130); Calcium 8.1 mg/dL (7.8-10.44); Carbon Dioxide 18 mmol/L (22-29); Chloride 115 mmol/L (98-107); Estimated GFR-MDRD 74; Glucose 262 mg/dL (70-105); Potassium 4.7 mmol/L (3.5-5.1); Sodium 136 mmol/L (136-145)
== END 2018-06-17 12:01 | disposition home or self-care (01) ==
LOC: LABBT 12:00
PROVIDERS: ATTEND Internal Medicine Cardiovascular Disease
DX: Z01.812 Encounter for preprocedural laboratory examination (principal); R09.89 Other specified symptoms and signs involving the circulatory and respiratory systems
CPT/HCPCS: 80048; 85027; 85610

== ENCOUNTER 2018-06-21 05:59 | Day surgery (SDC) | payer MEDICAID, MEDICARE, OTHER ==
[2018-06-17 12:10] VITALS: BMI 33.2
[2018-06-21] MEDS ORDERED: Iopamidol 370 76% 100 ML VIAL ONE (12:56)
--- NOTE | 2018-06-21 14:17 | CCL ---
CARDIOLOGY PROCEDURE NOTE: Date: 06/21/18 INDICATION FOR PROCEDURE: 58-year-old patient with history of claudication type symptoms. He underwent [place] and was found to méndez ve abnormal [place] with noncompressibility, most likely due to some calcifications. He continued to hav e claudication type symptoms. He also has history of lower extremity cellulitis. He was advised to un dergo cardiac catheterization. DESCRIPTION OF PROCEDURE: The patient was taken to the cardiac farm labor contractor, and prepped and draped in the sterile fashion. Using a right femoral artery approach, a #5 [place] introducer sheath was placed into the right femoral arter y. Using a #4 [place] Contra catheter, this was advanced to the distal aorta. Images were obtained. Th is showed the distal aorta to be free of any significant flow-limiting disease. Also, the bilateral c ommon iliacs, external iliacs, and internal iliacs were free of any significant flow-limiting disease . The wire and catheter were then directed down the external iliac and images were obtained on the le ft side with runoff to the left foot. This showed no evidence of superficial femoral artery stenosis and a three vessel runoff to the foot. There was no evidence of significant stenosis in the anterior tibial, posterior tibial, or peroneal. He did have calcifications, but no flow-limiting disease was n oted, just diffuse calcifications. The catheter was then pulled back, and using a sheath injection, t he right common femoral artery was injected with runoff all the way to the foot, with a very similar picture. There was no evidence of stenosis in the external iliac or in the common femoral artery, nor significant stenosis in the superficial femoral artery or in the anterior tibial, posterior tibial, or peroneal. All three vessels were seen to the foot, but again calcifications were noted. Also noted were significant calcifications involving the greater saphenous veins bilaterally. The catheter was then removed and the sheath was removed. The patient tolerated the procedure well. IMPRESSION: No evidence of flow-limiting disease in the arterial systems of both lower extremities, with calcific ations noted and also calcifications noted in the venous system. Otherwise, no difficulties were enco untered.
--- NOTE | 2018-06-21 16:15 | DIS ---
DATE OF ADMISSION: 06/21/2018 DATE OF DISCHARGE: 06/21/2018 DATE OF PROCEDURE: 06/21/2018. DIAGNOSIS FOR THE OUTPATIENT PROCEDURE: Distal aortogram with runoff to lower extremities. INDICATION FOR PROCEDURE: Claudication type of symptoms of abnormal ABIs and lower extremity pain and also history of cellulitis in the past with claudication-type symptoms. OTHER DIAGNOSES: Included, 1. Diabetes. 2. Hypertension. 3. Chronic hepatitis C. 4. History of chronic kidney disease. 5. History of alcohol abuse, he stopped about a year ago. 6. He has a history of ascites also in the past. 7. History of some lower extremity cellulitis. DISCHARGE DIAGNOSES: 1. Diabetes. 2. Hypertension. 3. Chronic hepatitis C. 4. History of chronic kidney disease. 5. History of alcohol abuse, he stopped about a year ago. 6. He has a history of ascites also in the past. 7. History of some lower extremity cellulitis. PROCEDURE IN HOSPITAL: Included distal aortogram with runoff to the lower extremities and selective injection of the left external iliac with runoff all the way to the foot and then also injection using a sheath injection of the right common femoral artery with a runoff all the way to the foot. FOLLOWUP: His followup will be with me in about 1 month in the office. He will continue his routine followup with his hospice patient care secretary as well as with his Internal Medicine Physician and also with Gastroenterology as noted. DISCHARGE MEDICATIONS: Discharge medications will be the same as his admission medications; 1. Xifaxan 550 mg tablets b.i.d. 2. Losartan 25 mg once a day. 3. Cephalexin 500 mg every 12 hours for his lower extremity cellulitis. 4. Clindamycin 300 mg two capsules every 8 hours and this will be as per the patient as to how long he needs to take this. He has already been taking the medicine and may be coming to the end of this prescription, and it was not be refilled by me. 5. Folic acid 1 mg daily. 6. Furosemide 40 mg a day. 7. Spironolactone 100 mg 2 tablets daily. 8. Epclusa 400/100 mg tablets one daily. 9. Lisinopril 5 mg once a day. 10. Levemir insulin. 11. Per prescribers instructions, Propranolol HCl 120 mg extended release tablets one every 24 hours. 12. Decara 50,000 units orally. 13. Clonazepam as needed. HOSPITAL COURSE: This is a very unfortunate 58-year-old gentleman, who has some lower extremity claudication type of symptoms, underwent ABIs in the office, was found to have non-compressibility of the lower extremities in the arteries. He was advised to undergo a distal aortogram with both the lower extremities to determine whether or not there was any significant stenosis. He also has a history of lower extremity cellulitis. He has continued to take antibiotics. He was taken to the cardiac crime lab analyst where he underwent procedure today. He was found to have no significant stenosis in the common iliacs, external iliacs, internal iliacs, superficial femoral arteries nor any significant flow-limiting disease in bilateral posterior tibial, anterior tibial and peroneal. There were three-vessel runoff to the foot. He did have significant calcifications noted, but no evidence of significant stenosis and no evidence of flow limitation. He was noted to have significant calcifications noted in the venous system in the greater saphenous veins bilaterally. He tolerated the procedure well. There were no difficulties or complications encountered. He will be discharged to home in the next 3 to 4 hours. Job ID: [id number] [facility]
== END 2018-06-21 13:30 | disposition home or self-care (01) ==
LOC: CCL 05:59
PROVIDERS: ATTEND Internal Medicine Cardiovascular Disease
PROC: B41DZZZ Fluoroscopy of Aorta and Bilateral Lower Extremity Arteries (ICD-10-PCS; principal; 2018-06-21)
DX: I70.201 Unspecified atherosclerosis of native arteries of extremities, right leg (principal); L03.119 Cellulitis of unspecified part of limb; B19.20 Unspecified viral hepatitis C without hepatic coma; I12.9 Hypertensive chronic kidney disease with stage 1 through stage 4 chronic kidney disease, or unspecified chronic kidney disease; E11.22 Type 2 diabetes mellitus with diabetic chronic kidney disease; N18.9 Chronic kidney disease, unspecified; Z79.2 Long term (current) use of antibiotics; Z79.4 Long term (current) use of insulin; Z79.899 Other long term (current) drug therapy
CPT/HCPCS: 36416; 75630; 75716; C1725; C1769; J1644; Q9967

== ENCOUNTER 2018-08-16 16:46 | Outpatient (CLI) | payer OTHER ==
[2018-08-16 18:07] LABS: Hemoglobin 9.4 g/dL (14.0-18.0); Mean Corpuscular HGB CONC 34.1 g/dL (32.0-36.0); Mean Corpuscular Hemoglobin 33.1 pg (27.0-31.0); Mean Platelet Volume 7.2 fL (7.4-10.4); Platelet Count 124 thou/uL (130-400); RBC Distribution Width 12.8 % (11.5-14.5); Red Blood Cell (RBC) Count 2.84 mill/uL (4.70-6.10); White Blood Cell (WBC) Count 6.8 thou/uL (4.8-10.8)
[2018-08-16 18:18] LABS: INR-International Normal Ratio 1.2; PTT 33.3 SEC (22.9-36.1); Prothrombin Time 15.6 SEC (12.0-14.7)
[2018-08-16 18:25] LABS: Bilirubin Negative (Negative); Blood, Urine Large (Negative); Clarity CLEAR (Clear); Glucose, Urine (Dipstick) 100 mg/dL (Negative); Leukocyte Negative (Negative); Nitrite Negative (Negative); Protein, Urine (Dipstick) 300 mg/dL (Neg-Trace); Specific Gravity, Urine 1.015 (1.002-1.036); pH, Urine 5.5 (5.0-9.0)
[2018-08-16 18:29] LABS: Bacteria/HPF None Seen HPF (None Seen); Hyaline Casts/LPF 4-6 HYALINE CAST LPF (0-3 Hyaline); Pathc Cast-AUWi Flag 0.54 (0-2.49); Squamous Epithelial 0-3 HPF (0-3); WBC/HPF 0-3 HPF (0-3)
[2018-08-16 18:39] LABS: Anion Gap 7 mmol/L (10-20); BUN (Urea Nitrogen) 29 mg/dL (8.4-25.7); Calc. Creatinine Clearance 0 mL/min (70-130); Calcium 7.7 mg/dL (7.8-10.44); Carbon Dioxide 23 mmol/L (22-29); Chloride 113 mmol/L (98-107); Estimated GFR-MDRD 68; Glucose 116 mg/dL (70-105); Sodium 139 mmol/L (136-145)
== END 2018-08-16 16:47 | disposition home or self-care (01) ==
LOC: LABBT 16:46
PROVIDERS: ATTEND Urology
DX: Z01.818 Encounter for other preprocedural examination (principal); N47.1 Phimosis; B18.2 Chronic viral hepatitis C; E11.9 Type 2 diabetes mellitus without complications; I50.32 Chronic diastolic (congestive) heart failure; E88.09 Other disorders of plasma-protein metabolism, not elsewhere classified; K74.60 Unspecified cirrhosis of liver; N40.0 Benign prostatic hyperplasia without lower urinary tract symptoms; R31.29 Other microscopic hematuria; R80.8 Other proteinuria
CPT/HCPCS: 80048; 81001; 85027; 85610; 85730; 87086; 93005; 93010

== ENCOUNTER 2018-08-29 07:38 | Day surgery (SDC) | payer OTHER ==
[2018-08-25 18:12] VITALS: BMI 38.4
[2018-08-29] MEDS ORDERED: Levofloxacin 500 mg/D5W 100 ml Premix Bag ONE (08:57)
[2018-08-29] MEDS ORDERED: Midazolam HCl 2 mg/2 ml Vial ONE (09:22)
[2018-08-29] MEDS ORDERED: Bacitracin Zinc Ointment 30 gm TUBE ONE (10:19)
[2018-08-29] MEDS ORDERED: Fentanyl 100 MCG/2 ML VIAL ONE ×2 (10:23→12:10)
[2018-08-29] MEDS ORDERED: Oxybutynin 5 MG TAB ONE (12:14)
[2018-08-29] MEDS ORDERED: Phenazopyridine HCl 97.5 MG TABLET ONE (12:21)
--- NOTE | 2018-08-29 12:26 | OP ---
DATE OF PROCEDURE: 08/29/2018 PREOPERATIVE DIAGNOSES: 1. A 58-year-old male with history of hepatitis C, ascites, diabetes, presented with phimosis, irreducible. 2. Microscopic hematuria. POSTOPERATIVE DIAGNOSES: 1. A 58-year-old male with history of hepatitis C, ascites, diabetes, presented with phimosis, irreducible. 2. Microscopic hematuria. PROCEDURES PERFORMED: Flexible cystoscopy, dorsal slit, meatal calibration and dilatation, 16-Anguillan Stafford catheter placement. ANESTHESIA: LMA. COMPLICATIONS: None apparent. ESTIMATED BLOOD LOSS: Minimal. DISPOSITION: To recovery room in stable condition. SPECIMEN: None. INTRAOPERATIVE FINDIN. Tight phimosis; Moderate amount of smegma. 2. Meatal stenosis. 14 f 3. Flexible cystoscopy, negative for stricture. 4. Coapting lateral lobes with no significant obstructive hyperplasia of the prostate. Mild BPH component. Bladder grossly unremarkable. INDICATIONS FOR PROCEDURE AND HISTORY: Mr. Samayoa is a 58-year-old male Barbadian-speaking with history of diabetes, chronic hepatitis C, liver cirrhosis, ascites, who presented for evaluation of penile swelling. On physical exam, he had tight phimosis, unable to reduce, there is evidence of anasarca with lower extremity edema; however, mild preputial edema was noted. Nevertheless, I was unable to reduce the foreskin with unremarkable JEAN. He presents today for dorsal slit. I advised the patient against a formal circumcision as there were concerns regarding wound healing due to ascites and edema. As he is unable to retract the foreskin , he desires to proceed at minimum dorsal slit. Possible wound complication, prolonged drainage, cellulitis was reviewed with him in detail due to his co-existing medical comorbidities of diabetes, anasarca with hepatitis C. Moreover, he has microscopic hematuria, he presents today for cystoscopy. CT was obtained demonstrating no significant pathology of concern. He desires to proceed without reservation. DESCRIPTION OF PROCEDURE: After an informed consent was signed, the patient was taken to the operating room, placed in the dorsal lithotomy position with the genital area prepped and draped in the usual surgical sterile fashion. Again, noted was tight phimosis in which I am unable to reduce the foreskin. There was some preputial edema with scrotal edema; however, this was significantly less than his lower extremity edema, which demonstrated significant pitting edema. The foreskin was prepped and draped in the usual surgical sterile fashion. A dorsal slit was performed after I clamped his dorsal foreskin with a straight hemostat. This was taken to the level of the glans coronal sulcus and excised with Metzenbaum scissors. The edges of the incision were cauterized with electrocautery. The foreskin was then able to be reduced and visualization of the glans was noted. The edges of the dorsal slit incision were oversewn with 2-0 chromic in a running fashion. The edges were cauterized prior to reapproximating the skin with a suture. After appropriate reduction of the foreskin, there was moderate amount of smegma, which was cleaned with Betadine. New glove was then utilized to perform a flexible cystoscopy. There was some resistance passing the flexible cystoscope with the meatus consistent with meatal stenosis. I was able to bypass and there was no evidence of further urethral stricture of concern. Coapting bilateral hyperplasia of the prostate was noted coapting with no significant obstruction per se. No median lobe was noted. The bladder was grossly unremarkable. The ureteral orifice was then identified about 3 to 4 mm away from the bladder neck. At this time, the scope was removed, then the urethral meatus was formally calibrated and dilatated. The urethral meatus was calibrated to about 14- and 16-Anguillan and subsequently dilated with 28-Anguillan. He did have some oozing from his meatus after the dilatation. Therefore, I did place a 16-Anguillan Stafford catheter to gravity bag. Moreover, it will allow him to heal in the next few days without voiding into the wound ideally. He will return to my clinic this Wednesday for catheter removal, the patient discharged with Bactrim DS for 5 days, [place] , #20. Job ID: [id number] [facility]
[2018-08-29] MEDS ORDERED: Promethazine HCl 25 MG/ML VIAL ONE (13:19)
[2018-08-29] MEDS ORDERED: PROPOFOL 200 MG/20 ML VIAL ONE (16:31)
[2018-08-29] MEDS ORDERED: ePHEDrine 50 MG/ML VIAL ONE (16:31)
[2018-08-29] MEDS ORDERED: Ondansetron PF 4 MG/2 ML Vial ONE (16:31)
== END 2018-08-29 14:55 | disposition home or self-care (01) ==
LOC: SDC 07:38
PROVIDERS: ATTEND Urology
PROC: 0VNTXZZ Release Prepuce, External Approach (ICD-10-PCS; principal; 2018-08-29)
PROC: 0T7D8ZZ Dilation of Urethra, Via Natural or Artificial Opening Endoscopic (ICD-10-PCS; principal; 2018-08-29)
DX: N47.1 Phimosis (principal); N35.911 Unspecified urethral stricture, male, meatal; R31.29 Other microscopic hematuria; E11.9 Type 2 diabetes mellitus without complications; N40.0 Benign prostatic hyperplasia without lower urinary tract symptoms; B18.2 Chronic viral hepatitis C; K74.60 Unspecified cirrhosis of liver; I50.32 Chronic diastolic (congestive) heart failure; E88.09 Other disorders of plasma-protein metabolism, not elsewhere classified; N52.9 Male erectile dysfunction, unspecified; Z79.4 Long term (current) use of insulin; Z79.899 Other long term (current) drug therapy
CPT/HCPCS: 36416; J0690; J1956; J2250; J2405; J2550; J2704; J3010; J3490

== ENCOUNTER 2018-09-10 11:10 | Emergency (ER) | payer OTHER | END 2018-09-10 12:14 | disposition home or self-care (01) | LOC: ERS 11:10 | DX: T83.098A Other mechanical complication of other urinary catheter, initial encounter (principal); I10 Essential (primary) hypertension; E11.9 Type 2 diabetes mellitus without complications; K74.60 Unspecified cirrhosis of liver; Z71.6 Tobacco abuse counseling | CPT/HCPCS: 51702; 99406 ==

== ENCOUNTER 2018-09-11 14:05 | Emergency (ER) | payer OTHER | END 2018-09-11 15:05 | disposition home or self-care (01) | LOC: ERS 14:05 | DX: T83.018A Breakdown (mechanical) of other urinary catheter, initial encounter (principal); Z87.891 Personal history of nicotine dependence | CPT/HCPCS: 99283 ==

== ENCOUNTER 2018-09-15 21:29 | Emergency (ER) | payer OTHER | END 2018-09-15 22:50 | disposition home or self-care (01) | LOC: ERS 21:29 | DX: Z46.6 Encounter for fitting and adjustment of urinary device (principal); I11.0 Hypertensive heart disease with heart failure; I50.9 Heart failure, unspecified; E11.9 Type 2 diabetes mellitus without complications; Z87.891 Personal history of nicotine dependence | CPT/HCPCS: 87086; 99283 ==

== ENCOUNTER 2018-09-27 16:08 | Emergency (ER) | payer OTHER ==
[2018-09-27 17:40] LABS: #Basophils 0.1 thou/uL (0.0-0.2); #Eosinphils 0.6 thou/uL (0.0-0.7); #Lymphocytes 1.6 thou/uL (1.20-3.40); #Monocytes 0.5 thou/uL (0.11-0.59); #Neutrophils 3.2 thou/uL (1.40-6.50); %Eosinophils 10.7 % (0.0-10.0); %Lymphocytes 27.4 % (21.0-51.0); Hemoglobin 8.8 g/dL (14.0-18.0); Mean Corpuscular Hemoglobin 33.3 pg (27.0-31.0); Mean Corpuscular Volume 95.1 fL (78.0-98.0); Mean Platelet Volume 6.6 fL (7.4-10.4); Platelet Count 112 thou/uL (130-400); RBC Distribution Width 12.4 % (11.5-14.5); Red Blood Cell (RBC) Count 2.65 mill/uL (4.70-6.10)
[2018-09-27 17:58] LABS: ALT (SGPT) 20 U/L (8-55); AST (SGOT) 43 U/L (5-34); Albumin 1.8 g/dL (3.5-5.0); Alkaline Phosphatase 130 U/L (40-150); Anion Gap 9 mmol/L (10-20); BUN (Urea Nitrogen) 27 mg/dL (8.4-25.7); Bilirubin, Total 0.6 mg/dL (0.2-1.2); Calc. Creatinine Clearance 0 mL/min (70-130); Calcium 8.2 mg/dL (7.8-10.44); Carbon Dioxide 19 mmol/L (22-29); Chloride 114 mmol/L (98-107); Estimated GFR-MDRD 38; Globulin 3.5 g/dL (2.4-3.5); Glucose 102 mg/dL (70-105); Potassium 4.9 mmol/L (3.5-5.1); Protein, Total 5.3 g/dL (6.0-8.3); Sodium 137 mmol/L (136-145)
--- NOTE | 2018-09-27 18:01 | CT ---
EXAM: CT brain without contrast HISTORY: Lost balance at home and fell and hit head COMPARISON: 12/12/2017 TECHNIQUE: Multiple contiguous axial images were obtained and a CT of the brain without contrast. FINDINGS: The brain is normal in morphology and attenuation without focal lesions or confluent areas of infarction. Calcifications are seen in the right basal ganglia. There is no evidence of hydrocephalus, intracranial hemorrhage, or extra-axial fluid collection. The calvarium and overlying soft tissues are unremarkable. The visualized paranasal sinuses and masto id air cells are well aerated. IMPRESSION: No evidence of acute intracranial abnormality
[2018-09-27] MEDS ORDERED: cefTRIAXone\\ROCEPHIN 1 GM VIAL ONE (18:04)
[2018-09-27] MEDS ORDERED: methylPREDNISolone Sod Succ/PF 125 MG/2 ML VIAL ONE (18:04)
== END 2018-09-27 19:44 | disposition home or self-care (01) ==
LOC: ERS 16:08
DX: S41.111A Laceration without foreign body of right upper arm, initial encounter (principal); S61.411A Laceration without foreign body of right hand, initial encounter; S51.812A Laceration without foreign body of left forearm, initial encounter; S00.03XA Contusion of scalp, initial encounter; W01.0XXA Fall on same level from slipping, tripping and stumbling without subsequent striking against object, initial encounter
CPT/HCPCS: 36415; 70450; 80053; 85025; J0696; J2930